=== PATIENT | female | born 1965 | race Caucasian/White ===

== ENCOUNTER → 2017-11-24 13:01 | Outpatient (POV) | payer BC, SELFPAY ==
[2017-11-24 13:11] VITALS: BP 138/85; PULSE 71; RESP 18; O2SAT 98; BMI 21.9
--- NOTE | 2017-11-24 13:26 | HMH.PAINSOAP ---
[facility] Pain Management SOAP Note Subjective:: Patient is a pleasant 51-year-old white female who presents today to discuss her thoracic spine MRI. Patient has pain secondary to myofascial pain syndrome of the thoracic paraspinous. Patient had trigger point injections back in July with no long-term relief she states. 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 Today she states her pain is a 7 out of 10. She states her pain is achy and constant during flareups. She states that she has palpable knots in her right scapular region during flareups. Patient has been taking gabapentin 100 by mouth 3 times a day from her primary care provider she states that it does help some. Patient has tried and failed Lyrica. Patient also takes Flexeril in the evening. Patient would like to discuss options moving forward for more long-term relief. Patient currently going through changes at work which are stressful. She has also been seeing massage therapy for this with some relief. Objective:: Physical Exam General: Alert and oriented x3, no acute distress, pleasant and cooperative, [on room air] Lungs: Resps E/U, Symmetrical chest expansion Musculoskeletal: Flexion and extension of thoracic spine somewhat guarded secondary to pain, deep tendon reflexes normal, strength in upper and lower extremities [5/5], normal gait noted, stream point tenderness over the thoracic paraspinous on the right side. Palpable trigger points around the right scapular area. Neurological: speech clear, methods and procedures analyst equal, no gross sensory deficits MRI shows minimal thoracic spondylosis, no acute findings, no evidence of disc herniation canal stenosis or any other extradural defects. MRI read by Dr. Lazaro Stuart. Assessment:: Myofascial pain syndrome Plan:: We will plan a second round of trigger point injections of the thoracic paraspinous on the right side for this patient. We will coordinate with the massage therapist to have a massage right after injections. Patient also not on an anti-inflammatory. I will call in diclofenac 75 mg 1 p.o. twice daily. She will continue her gabapentin and her Flexeril from her primary care. This note was dictated with voice recognition software and may contain errors and omissions
--- NOTE | 2017-11-24 13:29 | P.CONS_ITS ---
[facility] Pain Management SOAP Note Subjective:: Patient is a pleasant 51-year-old white female who presents today to discuss her thoracic spine MRI. Patient has pain secondary to myofascial pain syndrome of the thoracic paraspinous. Patient had trigger point injections back in July with no long-term relief she states. 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 Today she states her pain is a 7 out of 10. She states her pain is achy and constant during flareups. She states that she has palpable knots in her right scapular region during flareups. Patient has been taking gabapentin 100 by mouth 3 times a day from her primary care provider she states that it does help some. Patient has tried and failed Lyrica. Patient also takes Flexeril in the evening. Patient would like to discuss options moving forward for more long-term relief. Patient currently going through changes at work which are stressful. She has also been seeing massage therapy for this with some relief. Objective:: Physical Exam General: Alert and oriented x3, no acute distress, pleasant and cooperative, [ on room air] Lungs: Resps E/U, Symmetrical chest expansion Musculoskeletal: Flexion and extension of thoracic spine somewhat guarded secondary to pain, deep tendon reflexes normal, strength in upper and lower extremities [5/5], normal gait noted, stream point tenderness over the thoracic paraspinous on the right side. Palpable trigger points around the right scapular area. Neurological: speech clear, centrifugal supervisor equal, no gross sensory deficits MRI shows minimal thoracic spondylosis, no acute findings, no evidence of disc herniation canal stenosis or any other extradural defects. MRI read by Dr. Lazaro Stuart. Assessment:: Myofascial pain syndrome Plan:: We will plan a second round of trigger point injections of the thoracic paraspinous on the right side for this patient. We will coordinate with the massage therapist to have a massage right after injections. Patient also not on an anti-inflammatory. I will call in diclofenac 75 mg 1 p.o. twice daily. She will continue her gabapentin and her Flexeril from her primary care. This note was dictated with voice recognition software and may contain errors and omissions
--- NOTE | 2017-11-24 13:33 | PC.PHONENOTE ---
called in Rx for Diclofenac 75mg BID with two refills to [facility]
== END ==
PROVIDERS: Family Provider Family Medicine; PCP Family Medicine; Visit Provider Clinical Nurse Specialist Family Health
DX: M79.1 Myalgia (principal)
CPT/HCPCS: 99212

== ENCOUNTER → 2017-12-05 13:34 | Day surgery (SDC) | payer BC, SELFPAY ==
[2017-12-05 14:21] VITALS: BP 151/90; PULSE 64; RESP 17; TEMP 36.4; O2SAT 98; BMI 22.8
[2017-12-05 14:40] VITALS: BP 125/86; PULSE 64; RESP 18
[2017-12-05 14:49] VITALS: BP 163/88; PULSE 72; RESP 18; O2SAT 96
--- NOTE | 2017-12-05 15:01 | HMH.PMPROC ---
- Procedure Date: 12/05/17 Time: 15:01 Anesthesiologist:: Titus Del Valle MD Complications:: None Pre-procedure Diagnosis:: Myofascial pain syndrome neck and upper trapezius area Post-procedure Diagnosis:: Same Indications for Procedure:: Patient is a pleasant 51-year-old white female who we are treating for myofascial pain to the neck and thoracic paraspinous area. Most of her pain encompasses trigger points throughout the upper trapezius area, lower trapezius area and thoracic paraspinous muscles. She presents for trigger point injections today to see if this will give her some relief of her pain symptoms. Procedure Details:: Trigger point injections ?8 to bilateral upper and lower trapezius muscles and thoracic paraspinous muscles Informed consent was obtained and the risk and benefits of the procedure was explained to the patient. Patient was taken to the procedure room. The neck and back were prepped using ChloraPrep. Triggerpoints were palpated and marked. Each of these trigger points were injected with bupivacaine 0.25% 3 mL's and Depo-Medrol 10 mg. A total of 8 trigger points was injected using 80 mg Depo-Medrol. The patient tolerated the procedure well with no complications. Plan and Disposition:: We will follow-up with this patient 2 weeks. We will reevaluate her symptoms at that time.
--- NOTE | 2017-12-05 15:07 | P.PCN_ITS ---
- Procedure Date: 12/05/17 Time: 15:01 Anesthesiologist:: Titus Del Valle MD Complications:: None Pre-procedure Diagnosis:: Myofascial pain syndrome neck and upper trapezius area Post-procedure Diagnosis:: Same Indications for Procedure:: Patient is a pleasant 51-year-old white female who we are treating for myofascial pain to the neck and thoracic paraspinous area. Most of her pain encompasses trigger points throughout the upper trapezius area, lower trapezius area and thoracic paraspinous muscles. She presents for trigger point injections today to see if this will give her some relief of her pain symptoms. Procedure Details:: Trigger point injections ?8 to bilateral upper and lower trapezius muscles and thoracic paraspinous muscles Informed consent was obtained and the risk and benefits of the procedure was explained to the patient. Patient was taken to the procedure room. The neck and back were prepped using ChloraPrep. Triggerpoints were palpated and marked. Each of these trigger points were injected with bupivacaine 0.25% 3 mL' s and Depo-Medrol 10 mg. A total of 8 trigger points was injected using 80 mg Depo-Medrol. The patient tolerated the procedure well with no complications. Plan and Disposition:: We will follow-up with this patient 2 weeks. We will reevaluate her symptoms at that time.
== END ==
PROVIDERS: Family Provider Family Medicine; PCP Family Medicine; Visit Provider Anesthesiology
DX: M79.1 Myalgia (principal)
CPT/HCPCS: 20552; J1030

== ENCOUNTER → 2017-12-09 08:56 | Outpatient (POV) | payer BC, SELFPAY ==
[2017-12-09 09:29] VITALS: BP 148/89; PULSE 93; RESP 18; TEMP 37.1; O2SAT 95; BMI 22.8
--- NOTE | 2017-12-09 10:12 | HMH.PAINSOAP ---
[facility] Pain Management SOAP Note Subjective:: Patient is a pleasant 51-year-old white female who we are treating for myofascial pain syndrome of the neck and thoracic paraspinous area. Patient had trigger point injections on Friday. Since then she has complete relief in her right side pain. However, she has increased pain in her left thoracic paraspinous. Patient states she is unable to sit or work. She said that she was planning on going to the urgent treatment center. Patient shows up today to discuss treatment. Patient has not taken the diclofenac we have prescribed for her yet. Patient states that she does use a heating pad and that does help. She rates her pain a 9 out of 10 today. ROS General: no recent weight change, no fever, no sleep disturbances Respiratory: no cough, no shortness of air, no recurring pulmonary infections Cardiovascular/Peripheral Vascular: No chest pain, No palpitations, no edema, no shortness of breath. Gastrointestinal: no incontinence, normal bowel movements reported Genitourinary: no incontinence Musculoskeletal: Trigger point palpated on the left thoracic paraspinous Psychiatric: normal mood/ affect Neurological: denies balance issues Objective:: Physical Exam General: Alert and oriented x3, no acute distress, pleasant and cooperative, [on room air] Lungs: Resps E/U, Symmetrical chest expansion, Eyes: PERRL Musculoskeletal: Extreme point tenderness on left-sided thoracic paraspinous. Trigger points palpated on left thoracic paraspinous. deep tendon reflexes normal, strength in upper and lower extremities [5/5], normal gait noted Neurological: speech clear, reinforcement maker equal, no gross sensory deficits Assessment:: Myofascial pain syndrome Plan:: I will call patient prednisone 20 mg 1 p.o. twice daily for 5 days. I also will call in tramadol 50 mg 1 p.o. 3 times daily for a week. She is to also take the diclofenac that has been prescribed for her previously. Patient on gabapentin and states that she cannot take Lyrica. We will follow-up with this patient in 1 week. Bryce #[id number] reviewed and appropriate. This note was dictated using voice ignition software may contain errors or omissions
--- NOTE | 2017-12-09 10:16 | P.CONS_ITS ---
[facility] Pain Management SOAP Note Subjective:: Patient is a pleasant 51-year-old white female who we are treating for myofascial pain syndrome of the neck and thoracic paraspinous area. Patient had trigger point injections on Friday. Since then she has complete relief in her right side pain. However, she has increased pain in her left thoracic paraspinous. Patient states she is unable to sit or work. She said that she was planning on going to the urgent treatment center. Patient shows up today to discuss treatment. Patient has not taken the diclofenac we have prescribed for her yet. Patient states that she does use a heating pad and that does help. She rates her pain a 9 out of 10 today. ROS General: no recent weight change, no fever, no sleep disturbances Respiratory: no cough, no shortness of air, no recurring pulmonary infections Cardiovascular/Peripheral Vascular: No chest pain, No palpitations, no edema, no shortness of breath. Gastrointestinal: no incontinence, normal bowel movements reported Genitourinary: no incontinence Musculoskeletal: Trigger point palpated on the left thoracic paraspinous Psychiatric: normal mood/ affect Neurological: denies balance issues Objective:: Physical Exam General: Alert and oriented x3, no acute distress, pleasant and cooperative, [ on room air] Lungs: Resps E/U, Symmetrical chest expansion, Eyes: PERRL Musculoskeletal: Extreme point tenderness on left-sided thoracic paraspinous. Trigger points palpated on left thoracic paraspinous. 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 twice daily for 5 days. I also will call in tramadol 50 mg 1 p.o. 3 times daily for a week. She is to also take the diclofenac that has been prescribed for her previously. Patient on gabapentin and states that she cannot take Lyrica. We will follow-up with this patient in 1 week. Bryce #[id number] reviewed and appropriate. This note was dictated using voice ignition software may contain errors or omissions
--- NOTE | 2017-12-10 08:35 | PC.PHONENOTE ---
12/09/17-called in Rx for Prednisone 20mg BID x5 days, Tramadol 50mg TID x 7 days and Diclofenac 75mg BID with 2 refills to pt pharmacy
== END ==
PROVIDERS: Family Provider Family Medicine; PCP Family Medicine; Visit Provider Clinical Nurse Specialist Family Health
DX: M79.1 Myalgia (principal)
CPT/HCPCS: 99212

== ENCOUNTER → 2017-12-16 09:35 | Outpatient (POV) | payer BC, SELFPAY ==
[2017-12-16 09:44] VITALS: BP 138/87; PULSE 101; RESP 20; TEMP 36.5; O2SAT 96; BMI 21.9
--- NOTE | 2017-12-16 09:53 | HMH.PAINSOAP ---
[facility] Pain Management SOAP Note Subjective:: This patient is a pleasant 52-year-old white female who presents today to discuss her recent flareup in pain. Patient is doing much better since her last visit she rates her pain a 3 out of 10 today. She does state that the pain has now moved back into her right side. Patient has pain secondary to myofascial pain syndrome of the thoracic paraspinous. Patient finished her steroids and found that this alleviated her pain greatly. Patient is now taking her diclofenac as prescribed. Patient is currently on gabapentin. Patient did have a trial dose of tramadol she states that this helped her pain significantly. Patient denies any side effects of the medication. ROS General: no recent weight change, no fever, no sleep disturbances Respiratory: no cough, no shortness of air, no recurring pulmonary infections Cardiovascular/Peripheral Vascular: No chest pain, No palpitations, no edema, no shortness of breath. Gastrointestinal: no incontinence, normal bowel movements reported Genitourinary: no incontinence Musculoskeletal: myfascial pain syndrome Psychiatric: normal mood/ affect, Neurological: [denies weakness in extremities], [denies balance issues] Objective:: Physical Exam General: Alert and oriented x3, no acute distress, pleasant and cooperative, [on room air] Lungs: Resps E/U, Symmetrical chest expansion, Eyes: PERRL Musculoskeletal: Flexion and extension of thoracic spine somewhat guarded secondary to pain, deep tendon reflexes normal, strength in upper and lower extremities [5/5], normal gait noted, palpable trigger points on bilateral thoracic paraspinous Neurological: speech clear, 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 twice daily and give her 1 month worth she is continuing to massage therapy. Patient is back at work. Patient's KAREN #[id number] reviewed and appropriate. I will see this patient back in a month and reevaluate her at this time. I believe that injections at this time would not be beneficial. However I do believe they would be beneficial in the future. This note was dictated using voice recognition software may contain errors or omissions
--- NOTE | 2017-12-16 09:56 | P.CONS_ITS ---
[facility] Pain Management SOAP Note Subjective:: This patient is a pleasant 52-year-old white female who presents today to discuss her recent flareup in pain. Patient is doing much better since her last visit she rates her pain a 3 out of 10 today. She does state that the pain has now moved back into her right side. Patient has pain secondary to myofascial pain syndrome of the thoracic paraspinous. Patient finished her steroids and found that this alleviated her pain greatly. Patient is now taking her diclofenac as prescribed. Patient is currently on gabapentin. Patient did have a trial dose of tramadol she states that this helped her pain significantly. Patient denies any side effects of the medication. ROS General: no recent weight change, no fever, no sleep disturbances Respiratory: no cough, no shortness of air, no recurring pulmonary infections Cardiovascular/Peripheral Vascular: No chest pain, No palpitations, no edema, no shortness of breath. Gastrointestinal: no incontinence, normal bowel movements reported Genitourinary: no incontinence Musculoskeletal: myfascial pain syndrome Psychiatric: normal mood/ affect, Neurological: [denies weakness in extremities], [denies balance issues] Objective:: Physical Exam General: Alert and oriented x3, no acute distress, pleasant and cooperative, [ on room air] Lungs: Resps E/U, Symmetrical chest expansion, Eyes: PERRL Musculoskeletal: Flexion and extension of thoracic spine somewhat guarded secondary to pain, deep tendon reflexes normal, strength in upper and lower extremities [5/5], normal gait noted, palpable trigger points on bilateral thoracic paraspinous Neurological: speech clear, cooker mechanic equal, no gross sensory deficits Assessment:: Myofascial pain syndrome Plan:: I will call this patient in tramadol 50 mg 1 p.o. twice daily and give her 1 month worth she is continuing to massage therapy. Patient is back at work. Patient's KAREN #[id number] reviewed and appropriate. I will see this patient back in a month and reevaluate her at this time. I believe that injections at this time would not be beneficial. However I do believe they would be beneficial in the future. This note was dictated using voice recognition software may contain errors or omissions
--- NOTE | 2017-12-16 10:27 | PC.PHONENOTE ---
called in Rx for Tramadol BID with no refills to [facility] in [place]
== END ==
PROVIDERS: Family Provider Family Medicine; PCP Family Medicine; Visit Provider Clinical Nurse Specialist Family Health
DX: M79.1 Myalgia (principal)
CPT/HCPCS: 99212

== ENCOUNTER → 2018-01-26 09:31 | Outpatient (POV) | payer BC, SELFPAY ==
[2018-01-26 09:38] VITALS: BP 143/82; PULSE 77; RESP 20; O2SAT 98; BMI 22.4
--- NOTE | 2018-01-26 09:57 | HMH.PAINSOAP ---
[facility] Pain Management SOAP Note Subjective:: Patient is a pleasant 52-year-old white female who presents today for follow-up. Patient is doing well on her current regimen of Zanaflex, tramadol. She is still working time. Patient states she is a little tired today due to watching her grandkids this weekend. Patient rates her pain 5 out of 10 today. Patient does state that it makes it worse with the changing of the weather. Patient is being treated for pain secondary to myofascial pain syndrome of the thoracic paraspinous. He denies any side effects to the medication. Patient is interested in potentially having a medication that she can take to help alleviate some of her nerve related pain symptoms. Patient and I discussed Cymbalta. We will start her at 30 mg daily. Patient denies any allergies. ROS General: no recent weight change, no fever, no sleep disturbances Respiratory: no cough, no shortness of air, no recurring pulmonary infections Cardiovascular/Peripheral Vascular: No chest pain, No palpitations, no edema, no shortness of breath. Gastrointestinal: no incontinence, normal bowel movements reported Genitourinary: no incontinence Musculoskeletal: Myofascial pain Psychiatric: normal mood/ affect, Neurological: [denies weakness in extremities], [denies balance issues] Objective:: Physical Exam General: Alert and oriented x3, no acute distress, pleasant and cooperative, [on room air] Lungs: Resps E/U, Symmetrical chest expansion, Eyes: PERRL Musculoskeletal: Flexion and extension of thoracic spine somewhat guarded secondary to pain, deep tendon reflexes normal, strength in upper and lower extremities [5/5], normal gait noted, palpable trigger points thoracic paraspinous bilaterally Neurological: speech clear, public affairs officer equal, no gross sensory deficits Assessment:: Myofascial pain syndrome Plan:: We will refill the patient's tramadol 50 mg 1 p.o. twice daily. Patient is also taking Zanaflex 4 mg 1 tab p.o. 3 times daily as needed. Patient states she mostly takes this at nighttime. Patient denies any side effects from the medications. We will also start her on Cymbalta 30 mg 1 p.o. daily. Patient is to call if she has any side effects to this medication. I will follow-up with this patient in months. KAREN #[id number] reviewed and appropriate. Patient is no longer taking gabapentin. This note was dictated using voice recognition software and may contain errors or omissions
--- NOTE | 2018-01-26 10:01 | P.CONS_ITS ---
[facility] Pain Management SOAP Note Subjective:: Patient is a pleasant 52-year-old white female who presents today for follow- up. Patient is doing well on her current regimen of Zanaflex, tramadol. She is still working time. Patient states she is a little tired today due to watching her grandkids this weekend. Patient rates her pain 5 out of 10 today. Patient does state that it makes it worse with the changing of the weather. Patient is being treated for pain secondary to myofascial pain syndrome of the thoracic paraspinous. He denies any side effects to the medication. Patient is interested in potentially having a medication that she can take to help alleviate some of her nerve related pain symptoms. Patient and I discussed Cymbalta. We will start her at 30 mg daily. Patient denies any allergies. ROS General: no recent weight change, no fever, no sleep disturbances Respiratory: no cough, no shortness of air, no recurring pulmonary infections Cardiovascular/Peripheral Vascular: No chest pain, No palpitations, no edema, no shortness of breath. Gastrointestinal: no incontinence, normal bowel movements reported Genitourinary: no incontinence Musculoskeletal: Myofascial pain Psychiatric: normal mood/ affect, Neurological: [denies weakness in extremities], [denies balance issues] Objective:: Physical Exam General: Alert and oriented x3, no acute distress, pleasant and cooperative, [ on room air] Lungs: Resps E/U, Symmetrical chest expansion, Eyes: PERRL Musculoskeletal: Flexion and extension of thoracic spine somewhat guarded secondary to pain, deep tendon reflexes normal, strength in upper and lower extremities [5/5], normal gait noted, palpable trigger points thoracic paraspinous bilaterally Neurological: speech clear, go cart mechanic equal, no gross sensory deficits Assessment:: Myofascial pain syndrome Plan:: We will refill the patient's tramadol 50 mg 1 p.o. twice daily. Patient is also taking Zanaflex 4 mg 1 tab p.o. 3 times daily as needed. Patient states she mostly takes this at nighttime. Patient denies any side effects from the medications. We will also start her on Cymbalta 30 mg 1 p.o. daily. Patient is to call if she has any side effects to this medication. I will follow-up with this patient in months. KAREN #[id number] reviewed and appropriate. Patient is no longer taking gabapentin. This note was dictated using voice recognition software and may contain errors or omissions
--- NOTE | 2018-01-27 12:52 | PC.PHONENOTE ---
01/26/18--called in Rx for Cymbalta 30mg daily with 2 refills to pt's pharmacy
== END ==
PROVIDERS: Family Provider Family Medicine; PCP Family Medicine; Visit Provider Clinical Nurse Specialist Family Health
DX: M79.1 Myalgia (principal)
CPT/HCPCS: 99212

== ENCOUNTER → 2018-04-27 09:00 | Outpatient (POV) | payer BC, SELFPAY ==
[2018-04-27 09:02] VITALS: BP 125/88; PULSE 85; RESP 18; O2SAT 98; BMI 21.9
--- NOTE | 2018-04-27 09:16 | P.CONS_ITS ---
[facility] Pain Management SOAP Note Subjective:: Patient is a pleasant 52-year-old white female who presents today for follow- up. Patient is doing well however she has been noticing that she is having to take her medication more. Patient is being treated for myofascial pain syndrome. Patient has had trigger point injections with good relief in the past and states that she believes that the pain is beginning to return. Patient would like additional trigger point injections. Patient states that after injection she gets up to 80% relief of her symptoms. Patient rates her pain a 6 out of 10 today. Mostly in her right trapezius. She was started on Cymbalta at her last visit and is doing quite well with this denies any side effects. We will increase that from 30 mg to 60 mg today. Patient is also on tramadol 50 mg 1 p.o. twice daily. Patient's KAREN #[id number] reviewed and appropriate. ROS General: no recent weight change, no fever, no sleep disturbances Respiratory: no cough, no shortness of air, no recurring pulmonary infections Cardiovascular/Peripheral Vascular: No chest pain, No palpitations, no edema, no shortness of breath. Gastrointestinal: no incontinence, normal bowel movements reported Genitourinary: no incontinence Musculoskeletal: Myofascial pain Psychiatric: normal mood/ affect Neurological: [denies weakness in extremities], [denies balance issues] Objective:: Physical Exam General: Alert and oriented x3, no acute distress, pleasant and cooperative, [ on room air] Lungs: Resps E/U, Symmetrical chest expansion, Eyes: PERRL Musculoskeletal: Flexion and extension of cervical spine somewhat guarded secondary to pain, deep tendon reflexes normal, strength in upper and lower extremities [5/5], normal gait, palpable trigger points right trapezius Neurological: speech clear, 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 daily we will also refill her tramadol 50 mg 1 p.o. 3 times daily. Patient's KAREN reviewed. Patient denies side effects of this medication and is doing quite well on it. We will schedule right trapezius trigger point injections for the patient. I will follow-up with her after this injection. This note was dictated using voice recognition software and may contain errors or omissions
== END ==
PROVIDERS: Family Provider Family Medicine; PCP Family Medicine; Visit Provider Clinical Nurse Specialist Family Health
DX: M79.1 Myalgia (principal)
CPT/HCPCS: 99212

== ENCOUNTER → 2018-05-26 09:11 | Outpatient (POV) | payer BC, SELFPAY ==
[2018-05-26 09:36] VITALS: BP 146/85; PULSE 62; RESP 18; O2SAT 98; BMI 22.8
--- NOTE | 2018-05-26 10:09 | P.CONS_ITS ---
[facility] Pain Management SOAP Note Subjective:: She is a pleasant 52-year-old white female who presents today for follow-up after trigger injections. Patient has had relief with these in the past however she states she did not get any relief from her pain in regards to this today. Most of her pain is in her right shoulder and down her shoulder blade. Patient does not have any recent MRIs of her cervical spine. I believe it would be beneficial to get this. Patient's currently being managed with tramadol 50 mg 1 p.o. 3 times daily. She is also utilizing massage therapy. Patient states her pain has been getting worse.. She rates her pain a 6 out of 10 today. ROS General: no recent weight change, no fever, no sleep disturbances Respiratory: no cough, no shortness of air, no recurring pulmonary infections Cardiovascular/Peripheral Vascular: No chest pain, No palpitations, no edema, no shortness of breath. Gastrointestinal: no incontinence, normal bowel movements reported Genitourinary: no incontinence Musculoskeletal: Myofascial pain, and shoulder pain, neck pain Psychiatric: normal mood/ affect Neurological: [denies weakness in extremities], [denies balance issues] Objective:: Physical Exam General: Alert and oriented x3, no acute distress, pleasant and cooperative, [ on room air] Lungs: Resps E/U, Symmetrical chest expansion, Eyes: PERRL Musculoskeletal: Flexion and extension of cervical spine somewhat guarded secondary to pain, deep tendon reflexes normal, strength in upper and lower extremities [5/5], normal gait noted, palpable trigger points along the right trapezius 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 We will also try some compounding cream to help with her myofascial pain. I will follow-up with the patient after her MRI and discussed the plan of care with her. This note was dictated using voice recognition software and may contain errors or omissions
--- NOTE | 2018-06-08 13:57 | PC.NURSE ---
TRAMADOL 50MG TID WITH 2 REFILLS CALLED INTO [facility]
== END ==
PROVIDERS: Family Provider Family Medicine; PCP Family Medicine; Visit Provider Clinical Nurse Specialist Family Health
DX: M79.1 Myalgia (principal)
CPT/HCPCS: 99213

== ENCOUNTER → 2018-06-11 10:28 | Outpatient (CLI) | payer BC, SELFPAY ==
--- NOTE | 2018-06-11 10:30 | MR_ITS ---
MR cervical spine wo con, MR 3-d myelogram/MRCP HISTORY: Neck pain, worse on the right. States having bilateral neck spasms but worse on the rt side. Spasms will go from the neck down to the scapulas. . ITS.REASON: NECK PAIN ORDERING PHYSICIAN: Titus Del Valle MD PATIENT AGE: 52 years Comparison: None TECHNIQUE: Standard multiplanar multiecho sequences are performed without contrast. 3-D MIP and myelographic images are also rendered and reviewed FINDINGS: Normal alignment. Unremarkable cranial cervical junction. No fracture or dislocation. The disc spaces are well-preserved. No evidence of significant disc bulge or herniated disc or canal stenosis. No significant degenerative change. The spinal cord has an unremarkable appearance. IMPRESSION: Negative MRI of the cervical spine
== END ==
PROVIDERS: Family Provider Family Medicine; PCP Family Medicine; Visit Provider Anesthesiology
DX: M54.2 Cervicalgia (principal)
CPT/HCPCS: 72141; 76376

== ENCOUNTER → 2018-06-29 12:58 | Outpatient (POV) | payer BC, SELFPAY ==
[2018-06-29 13:11] VITALS: BP 132/77; PULSE 57; RESP 18; O2SAT 100; BMI 21.9
--- NOTE | 2018-06-29 13:43 | HMH.PAINSOAP ---
[facility] Pain Management SOAP Note Subjective:: Patient is a pleasant 52-year-old white female who presents today for follow-up. Patient had MRI of her cervical spine which was negative. Patient still having a lot of neck and trapezius pain. Most of her pain is in her right shoulder and down her shoulder blade. Patient rates her pain a 8 out of 10. Patient has tried a compounding cream which has helped somewhat patient still on tramadol 50 mg 1 p.o. 3 times daily gabapentin 100 mg 1 p.o. 3 times daily. We will refill these for her today. Patient has not tried dry needling. Patient has had trigger points in the past with good relief however her last that did not help her as much as they typically do. ROS General: no recent weight change, no fever, no sleep disturbances Respiratory: no cough, no shortness of air, no recurring pulmonary infections Cardiovascular/Peripheral Vascular: No chest pain, No palpitations, no edema, no shortness of breath. Gastrointestinal: no incontinence, normal bowel movements reported Genitourinary: no incontinence Musculoskeletal: Myofascial pain Psychiatric: normal mood/ affect Neurological: [denies weakness in extremities], [denies balance issues] Objective:: Physical Exam General: Alert and oriented x3, no acute distress, pleasant and cooperative, [on room air] Lungs: Resps E/U, Symmetrical chest expansion, Eyes: PERRL Musculoskeletal: Flexion and extension of cervical spine somewhat guarded secondary to pain, deep tendon reflexes normal, strength in upper and lower extremities [5/5], normal gait noted Neurological: 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 I will follow-up with the patient after this. We will refill her medications. Patient has been instructed to call the office if she has any issues prior to her next appointment. This note was dictated using voice recognition software and may contain errors or omissions
== END ==
PROVIDERS: Family Provider Family Medicine; PCP Family Medicine; Visit Provider Clinical Nurse Specialist Family Health
DX: M79.1 Myalgia (principal); M54.2 Cervicalgia
CPT/HCPCS: 99213

== ENCOUNTER → 2018-08-03 14:35 | Outpatient (POV) | payer BC, SELFPAY ==
[2018-08-03 14:47] VITALS: BP 116/78; PULSE 80; RESP 18; O2SAT 98; BMI 22.8
--- NOTE | 2018-08-03 14:59 | HMH.PAINSOAP ---
[facility] Pain Management SOAP Note Subjective:: Patient is a pleasant 52-year-old white female who presents today for follow-up. Patient had an MRI of her cervical spine which was negative she is been getting dry needling along with physical therapy for her neck and trapezius pain. She states that it is very beneficial she rates her pain a 5 out of 10 today. Patient is also on tramadol and gabapentin. ROS General: no recent weight change, no fever, no sleep disturbances Respiratory: no cough, no shortness of air, no recurring pulmonary infections Cardiovascular/Peripheral Vascular: No chest pain, No palpitations, no edema, no shortness of breath. Gastrointestinal: no incontinence, normal bowel movements reported Genitourinary: no incontinence Musculoskeletal: Myofascial pain Psychiatric: normal mood/ affect Neurological: [denies weakness in extremities], [denies balance issues] Objective:: Physical Exam General: Alert and oriented x3, no acute distress, pleasant and cooperative, [on room air] Lungs: Resps E/U, Symmetrical chest expansion, Eyes: PERRL Musculoskeletal: Flexion and extension of cervical spine somewhat guarded secondary to pain, deep tendon reflexes normal, strength in upper and lower extremities [5/5], normal gait noted Neurological: 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 Patient is instructed to call the office if she has any issues prior to her next appointment. This note was dictated using voice recognition software and may contain errors or omissions
--- NOTE | 2018-08-03 15:03 | P.CONS_ITS ---
[facility] Pain Management SOAP Note Subjective:: Patient is a pleasant 52-year-old white female who presents today for follow-up. Patient had an MRI of her cervical spine which was negative she is been getting dry needling along with physical therapy for her neck and trapezius pain. She states that it is very beneficial she rates her pain a 5 out of 10 today. Patient is also on tramadol and gabapentin. ROS General: no recent weight change, no fever, no sleep disturbances Respiratory: no cough, no shortness of air, no recurring pulmonary infections Cardiovascular/Peripheral Vascular: No chest pain, No palpitations, no edema, no shortness of breath. Gastrointestinal: no incontinence, normal bowel movements reported Genitourinary: no incontinence Musculoskeletal: Myofascial pain Psychiatric: normal mood/ affect Neurological: [denies weakness in extremities], [denies balance issues] Objective:: Physical Exam General: Alert and oriented x3, no acute distress, pleasant and cooperative, [on room air] Lungs: Resps E/U, Symmetrical chest expansion, Eyes: PERRL Musculoskeletal: Flexion and extension of cervical spine somewhat guarded secondary to pain, deep tendon reflexes normal, strength in upper and lower extremities [5/5], normal gait noted 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 Patient is instructed to call the office if she has any issues prior to her next appointment. This note was dictated using voice recognition software and may contain errors or omissions
== END ==
PROVIDERS: Family Provider Family Medicine; PCP Family Medicine; Visit Provider Clinical Nurse Specialist Family Health
DX: M79.18 Myalgia, other site (principal); M54.2 Cervicalgia
CPT/HCPCS: 99213

== ENCOUNTER 2018-11-05 16:00 | Outpatient (RCR) | payer BC, SELFPAY ==
--- NOTE | 2018-08-28 16:51 | HMH.RHREAS ---
Rehab Reassessment Rehab OP Re-assessment Start: 08/28/18 16:05 Freq: Status: Active Protocol: Document 08/28/18 16:06 JANICE (Rec: 08/28/18 16:51 JANICE [id number]) Electronically Signed By Willian Soriano, PT 08/28/18 16:06 Rehab Re-assessment Subjective Subjective Pt reports 40% improvement since start of current plan of care. Doing the physical therpay and massage therapy at the same time is giving me the most relief I've had in a long time. Objective Objective Notes Cervical AROM WNL MMT: WNL Pain: currently 4/10, at worst over past week 7/10, at best 2/10 Neuro: WNL TTP: R interscapular mm Assessment Progress Assessment Slower Than Expected Assessment Notes Progress has been hinderd by time constraints with prior oblications. Rx has consisted of soft tissue stretches and postural corrective exercises. Pt reports compliance with HEP. Manual dry needling to address trigger points and pain referral. Thoracic spine HVLAT with cavitations. Modalities for anti- inflammatory and pain reduction purposes. Pt would benefit from contiuing with skilled PT services in order to progress wellness and decrease functional limitation . Patient goals met STG's Goals Not Met LTG's Revised Goals NA Plan Plan Continue with current POC. Frequency of Therapy 2x/week Duration of therapy 3 weeks Time and Billing Re-Eval Time 15 Re-Eval Billing Units 1 PHYSICIAN CERTIFICATION: I certify the specified therapy services for Carolee Hou are required, authorized, and reviewed every 30 days.
== END 2018-11-05 16:05 | disposition home or self-care (01) ==
LOC: PT 16:00
PROVIDERS: Family Provider Family Medicine; PCP Family Medicine; Visit Provider Clinical Nurse Specialist Family Health
DX: M54.2 Cervicalgia (principal); M25.511 Pain in right shoulder; M25.512 Pain in left shoulder
CPT/HCPCS: 97010; 97014; 97035; 97110; 97140; 97163; 97164; G0283

== ENCOUNTER → 2021-06-08 07:59 | Outpatient (CLI) | payer BC, SELFPAY ==
--- NOTE | 2021-06-08 08:05 | CT_ITS ---
PROCEDURE: CT LUNG SCREENING CLINICAL INDICATION: H/O NICOTINE DEPENDENCE COMPARISON: No exams were available for comparison TECHNIQUE: The exam was performed on a GE Light Speed [address] scanner using 2.90 mGy CTDI. A low dose helical CT CHEST was performed on a multi-detector scanner. All CT scans at the facility use one or more dose reduction, viz: automated exposure control, ma/kV adjustment per patient size (including targeted exams where dose is matched to indication, i.e. head), or iterative reconstruction technique. The LDCT was performed in a facility that meets the criteria for the screening program. Data regarding this exam was submitted to ACR which is an approved registry. The order for this exam indicates that it came as a result of a lung cancer screening counseling shard decision-making visit that included all the elements required of such a visit including smoking cessation. The radiologist interpreting this exam meets the CMS criteria for the LDCT lung cancer screening program. The exam is reported using the Lung-RADS classification scale and reported to the ACR registry. NOTE: This study was performed for the specific purposes of lung cancer screening and is not an alternative to diagnostic chest CT. RADIATION DOSE: CTDI vol(CT dose Index-volume) = 2.90mG DLP (Dose Length Product) = 84.38 mGcm FINDINGS: COPD with evidence of old granulomatous disease. Low lung volumes with atelectatic changes in the lung bases. 3 mm nodular opacity right lung base 4/40. No suspicious nodules identified. OTHER FINDINGS: No other pertinent findings evident. IMPRESSION: Lung-RADS Category 2 Benign Appearance or Behavior Follow-up: Continue annual screening with LDCT in 12 months Dictated by: Lazaro Stuart MD 06/11/2021 10:50 Lazaro Stuart MD in [place] 06/11/2021 10:50
== END ==
PROVIDERS: PCP Family Medicine; Visit Provider Family Medicine
DX: Z87.891 Personal history of nicotine dependence (principal)
CPT/HCPCS: 71271

== ENCOUNTER 2022-02-19 20:33 | Emergency (ER) | payer BC, SELFPAY ==
[2022-02-19 20:51] VITALS: BP 154/84; PULSE 91; RESP 19; TEMP 36.7; O2SAT 100; BMI 25.2
[2022-02-19 21:05] LABS: Apearance,Urine Clear (Clear); Bilirubin,Urine Negative (Negative); Blood, Urine Negative (Negative); Color,Urine Yellow (Yellow); Glucose,Urine (UA) Negative (Negative); Ketones,Urine Negative (Negative); Protein,Urine Negative (Negative); Specific Gravity, Urine 1.025 (1.005-1.030); UTC Leukocyte Esterase,Urine 1+ (Negative); UTC Nitrate,Urine Negative (Negative); Urobilinogen,Urine 0.2 EU/dl (0.2)
--- NOTE | 2022-02-19 21:07 | XR_ITS ---
PROCEDURE INFORMATION: Exam: XR Right Ribs with PA Chest Exam date and time: 02/19/2022 9:02 PM Age: 56 years old Clinical indication: Chest wall pain; Patient HX: Right rib pain that radiates from flank to posterior. Nki, started hurting at work today TECHNIQUE: Imaging protocol: XR Right ribs with PA chest. Views: 3 views COMPARISON: CT LUNG SCREENING 06/08/2021 8:09 AM FINDINGS: Lungs: Unremarkable. No consolidation. Pleural spaces: Unremarkable. No pleural effusion. No pneumothorax. Heart/Mediastinum: Unremarkable. No cardiomegaly. Bones/joints: Unremarkable. IMPRESSION: No acute findings.
--- NOTE | 2022-02-19 21:46 | HMH.EDUTC ---
[facility] [place] Clinical Impression: Back pain Qualifiers: Back pain location: thoracic back pain Chronicity: acute Back pain laterality: right Qualified Code(s): M54.6 - Pain in thoracic spine Disposition: Still a Patient Condition on Discharge: Good Referrals: Andrade Issa [Primary Care Provider] - Medical Decision Making - Medical Records Medical records reviewed: No: I reviewed the patient's medical records. - Bryce Inquiry Pt receiving controlled substance: No Vital Signs: 02/19/22 20:51 Temperature 98.0 F Temperature Source Oral Pulse Rate [Radial] 91 H Respiratory Rate 19 Blood Pressure [Right Arm] 154/84 H Blood Pressure Mean [Right Arm] 107 02 Sat by Pulse Oximetry 100 - Lab Data Lab results reviewed: Yes: I reviewed the patient's lab results. Lab Results 02/19/22 21:04: Urine Color Yellow, Urine Appearance Clear, Urine pH 6.0, Ur Specific Boyd 1.025, Urine Protein Negative, Urine Glucose (UA) Negative, Urine Ketones Negative, Urine Blood Negative, Urine Nitrate Negative, Urine Bilirubin Negative, Urine Urobilinogen 0.2, Ur Leukocyte Esterase 1+ A Orders (Tests/Meds): ORDERS Category Date Time Status CBC w/Auto Diff [Complete Blood Count Auto Diff] Stat Lab 02/19/22 21:46 Ordered CMP [Comprehensive Metabolic Panel] Stat Lab 02/19/22 21:46 Ordered Urine Culture Stat Micro 02/19/22 21:46 Ordered Medical Decision Narrative: She was transferred to the ER due to the severity of her pain. She is very uncomfortable and cannot sit still because she is hurting so bad in this office. [facility] H[place] - General Stated complaint: pain R Back side Time Seen by Provider: 02/19/22 21:25 Mode of Arrival: Ambulatory Source of Information: Patient Limitations: No Limitations Description of Symptoms (Recalled from Triage Doc. by RN): pt hurting in her right side, she thinks it may be kidney related although she does not have history of kidney stones HEENT Symptoms (Recalled from RN notes): No Resp Symptoms (Recalled from RN notes): No Skin Symptoms (Recalled from RN notes): No MS Symptoms (Recalled from RN notes): No Functional Status (Recalled from RN notes): wnl - History of Present Illness Provider Complaint: She states that since earlier today she has had right sided middle to lower back pain that she rates as a 9/10. She denies any injury or any preceding event. She states that she doesn't feel like she is peeing as much as she normally does also. She denies any dysuria. She denies any personal history of kidney stones. - Related Data Home Medications Medication Instructions Recorded Confirmed Diclofenac Sodium [Diclofenac 75mg 75 mg PO BID 05/05/18 12/17/18 Tab] Losartan Potassium 50 mg PO DAILY 05/05/18 12/17/18 Miscellaneous [Unknown Home 0 mg PO DAILY 05/05/18 12/17/18 Medication] Tizanidine HCl [Zanaflex 4mg 4 mg PO BIDP PRN 05/05/18 12/17/18 tablet] Tramadol HCl [Ultram] 50 mg PO TIDP PRN 05/05/18 12/17/18 gabapentin 100 mg capsule PO 90 Days #270 cap 12/17/18 12/17/18 rosuvastatin 10 mg tablet PO 90 Days #90 tab 12/17/18 12/17/18 Previous Rx's Medication Instructions Recorded Cyclobenzaprine HCl [Flexeril 10mg 10 mg PO Q8HP PRN #30 tab 10/26/18 tablet] Ibuprofen [Ibuprofen 600mg 600 mg PO Q6HP PRN #30 tab 05/12/19 Tablet] Methocarbamol [Robaxin 500mg Tab] 500 mg PO BIDP PRN #30 tab 05/12/19 Benzonatate [Tessalon Perle 100mg 100 mg PO BID 7 Days #14 cap 05/29/19 Cap*] predniSONE [Prednisone 20mg 20 mg PO BID #10 tab 05/29/19 Tab] Amoxicillin/Potassium Clav 1 tab PO Q12H 10 Days #20 tab 07/09/19 [Augmentin 875-125 Tablet] Methocarbamol [Robaxin 500mg Tab] 500 mg PO BIDP PRN #30 tab 07/09/19 methylPREDNISolone [Medrol] 4 mg PO DIRECTED 6 Days #21 07/09/19 tab.[email or web address] Allergies Allergy/AdvReac Type Severity Reaction Status Date / Time No Known Allergies Allergy Verified 02/19/22 20:54 - Worker's Comp Is this
[2022-02-19 22:06] VITALS: BP 133/80; PULSE 76; RESP 18; TEMP 36.8; O2SAT 97; BMI 25.0
[2022-02-19 22:21] LABS: Basophils # 0.2 K/mm3 (0-0.2); Basophils % 1.8 % (0.1-2.0); Eosinophils # 0.1 K/mm3 (0.0-0.4); Eosinophils % 1.5 % (0.1-12.0); Hemoglobin 12.9 g/dL (12.2-16.2); Lymphocytes # 2.7 K/mm3 (0.7-4.5); Lymphocytes % 31.9 % (10-50); Mean Corpuscular HGB Conc 32.3 g/dL (31.8-35.4); Mean Corpuscular Hemoglobin 32.6 pg (27.0-31.2); Mean Platelet Volume 8.1 fl (7.4-10.4); Monocytes # 0.5 K/mm3 (0.1-1.0); Monocytes % 5.4 % (1.7-9.3); Neutrophils % 59.4 % (37.0-80.0); Platelet Count 259 K/mm3 (142-424); Red Blood Count 3.97 M/mm3 (4.20-5.40); White Blood Count 8.5 K/mm3 (4.8-10.8)
[2022-02-19 22:27] LABS: Chloride 105 mmol/L (98-107); Potassium 3.9 mmoL/L (3.5-5.1); Sodium 139 mmol/L (136-145)
[2022-02-19 22:29] LABS: Alanine Aminotransferase 28 U/L (12-78); Aspartate Amino Transferase 29 U/L (14-36); Blood Urea Nitrogen 21 mg/dl (7-17); Creatinine Clearance Estimated 87 mL/min (50-200); Estimated Glomerular Filt Rate 74 ml/min (>60); GFR (African American) 89 ML/MIN (>60)
[2022-02-19 22:30] LABS: Albumin/Globulin Ratio 1.4 (1.1-1.8); Alkaline Phosphatase 111 U/L (38-126); Anion Gap 7.9 mEq/L (5-15); Bilirubin,Total 0.4 mg/dl (0.2-1.3); Calcium 8.9 mg/dl (8.4-10.2); Carbon Dioxide 30 mmol/L (22.0-30.0); Globulin 2.9 g/dL (1.3-3.2); Glucose 108 mg/dl (74-100); Total Protein,Serum 6.9 g/dl (6.3-8.2)
--- NOTE | 2022-02-19 22:42 | CT_ITS ---
PROCEDURE INFORMATION: Exam: CT Abdomen And Pelvis Without Contrast Exam date and time: 02/19/2022 10:46 PM Age: 56 years old Clinical indication: Abdominal pain; Flank; Right; Additional info: R flank pain TECHNIQUE: Imaging protocol: Computed tomography of the abdomen and pelvis without contrast. Radiation optimization: All CT scans at this facility use at least one of these dose optimization techniques: automated exposure control; mA and/or kV adjustment per patient size (includes targeted exams where dose is matched to clinical indication); or iterative reconstruction. COMPARISON: CT LUNG SCREENING 06/08/2021 8:09 AM FINDINGS: Liver: Normal. No mass. Gallbladder and bile ducts: Normal. No calcified stones. No ductal dilation. Pancreas: Normal. No ductal dilation. Spleen: Calcifications in the spleen. Adrenal glands: Normal. No mass. Kidneys and ureters: Mild right hydronephrosis and ureteral dilatation but no stones in the ureter or in the bladder and these findings likely indicate recent passage of stone. Stomach and bowel: Unremarkable. No obstruction. No mucosal thickening. Appendix: Appendix not seen but no secondary signs of appendicitis. Intraperitoneal space: Unremarkable. No free air. No significant fluid collection. Vasculature: Unremarkable. No abdominal aortic aneurysm. Lymph nodes: Unremarkable. No enlarged lymph nodes. Urinary bladder: Unremarkable as visualized. Reproductive: Hysterectomy. Bones/joints: Unremarkable. No acute fracture. Soft tissues: Unremarkable. IMPRESSION: Mild right hydronephrosis and ureteral dilatation but no stones in the ureter or in the bladder and these findings likely indicate recent passage of stone.
[2022-02-19 23:03] LABS: Microscopic, Urine URINE MICROSCOPIC (MICROSCOPIC)
[2022-02-19 23:09] LABS: Appearance,Urine CLEAR (Clear); Bilirubin,Urine Negative (Negative); Blood, Urine Negative (Negative); Color,Urine YELLOW (Yellow); Glucose,Urine (UA) Negative (Negative); Ketones,Urine Negative (Negative); Leukocyte Esterase,Urine 2+ (Negative); Nitrate,Urine Negative (Negative); Protein,Urine Negative (Negative); Urobilinogen,Urine 0.2 EU/dl (0.2)
[2022-02-19 23:11] LABS: Erythrocyte Sedimentation Rate 60 mm/hr (0-30)
[2022-02-19 23:17] LABS: Procalcitonin 0.082 ng/mL (0.0-2.0)
[2022-02-19 23:25] LABS: Squamous Epithelial Cell,Urine Occasional #/hpf (0-5)
[2022-02-19 23:38] VITALS: BP 143/78; PULSE 88; RESP 17; TEMP 37.2; O2SAT 96
== END 2022-02-19 23:48 | disposition home or self-care (01) ==
LOC: UTC 20:40 → ER 21:49
PROVIDERS: Nurse Practitioner Family; Emergency Provider Emergency Medicine; PCP Family Medicine
DX: M54.50 Low back pain, unspecified (principal); M54.6 Pain in thoracic spine; I10 Essential (primary) hypertension; E78.5 Hyperlipidemia, unspecified; F17.210 Nicotine dependence, cigarettes, uncomplicated; Z79.1 Long term (current) use of non-steroidal anti-inflammatories (NSAID); Z79.52 Long term (current) use of systemic steroids; Z79.899 Other long term (current) drug therapy
CPT/HCPCS: 71101; 74176; 80053; 81001; 81003; 84145; 85025; 85651; 86140; 87086; 96374; 96375; 99285; J2405

== ENCOUNTER → 2022-06-14 07:58 | Outpatient (CLI) | payer BC, SELFPAY ==
--- NOTE | 2022-06-14 08:03 | CT_ITS ---
FINAL REPORT TECHNIQUE: Axial images were obtained from the lung apex to the mid abdomen by computed tomography. This study was performed with techniques to keep radiation doses as low as reasonably achievable (ALARA). Individualized dose reduction techniques using automated exposure control or adjustment of mA and/or kV according to the patient's size were employed. CLINICAL HISTORY: H/O NICOTINE DEPENDENCE former smoker, quit 5 years ago. smoked 1 ppd x 30 years family hx COMPARISON: 06/08/2021 FINDINGS: CHEST CT LOW DOSE CTDI vol (mGy): 2.90 DLP (mGy-cm): 89.34 There is no axillary adenopathy. There are multiple borderline sized mediastinal nodes. The heart is normal in size. There is no pericardial or pleural effusion. Lung window images demonstrate no suspicious infiltrate or nodule. There is a calcified granuloma in the right upper lobe. Note is made of mild scarring Limited images of the upper abdomen are unremarkable. IMPRESSION: Lung RADS category 1. Recommend 12 month follow-up low-dose chest CT. Reviewed, Interpreted and Dictated by Dc Marquis III, MD Transcribed by Laila Vidal Authenticated and [facility]
== END ==
PROVIDERS: PCP Family Medicine; Visit Provider Internal Medicine
DX: Z87.891 Personal history of nicotine dependence (principal); Z12.2 Encounter for screening for malignant neoplasm of respiratory organs
CPT/HCPCS: 71271

== ENCOUNTER 2022-06-23 18:04 | Emergency (ER) | payer BC, SELFPAY ==
--- NOTE | 2022-06-23 18:21 | XR_ITS ---
PROCEDURE INFORMATION: Exam: XR Left Ankle Exam date and time: 06/23/2022 6:31 PM Age: 56 years old Clinical indication: Injury or trauma; Fall; Sprain or strain; Ankle; Left TECHNIQUE: Imaging protocol: Radiologic exam of the Left ankle. Views: 3 or more views. COMPARISON: No relevant prior studies available. FINDINGS: Bones/joints: No acute fracture or dislocation. Normal bone mineralization. Ankle mortise is intact. Soft tissues: Normal. IMPRESSION: No acute findings.
--- NOTE | 2022-06-23 18:21 | XR_ITS ---
PROCEDURE INFORMATION: Exam: XR Left Foot Exam date and time: 06/23/2022 6:33 PM Age: 56 years old Clinical indication: Injury or trauma; Fall; Sprain or strain; Foot; Left TECHNIQUE: Imaging protocol: Radiologic exam of the Left foot. Views: 3 or more views. COMPARISON: CR XR ANKLE LT MIN 3V 06/23/2022 6:31 PM FINDINGS: Bones/joints: No acute fracture or dislocation. Normal bone mineralization. Joint spaces are preserved. Soft tissues: Normal. IMPRESSION: No acute findings.
[2022-06-23 18:25] VITALS: BP 96/78; PULSE 91; RESP 22; TEMP 36.8; O2SAT 96; BMI 28.3
--- NOTE | 2022-06-23 18:35 | EXP.UTC ---
Discharge Plan Prescriptions Prescriptions: No Action gabapentin 100 mg capsule PO 90 Days Qty: 270 rosuvastatin 10 mg tablet PO 90 Days Qty: 90 prednisone 20 MG tablet 20 mg PO BID Qty: 10 0RF benzonatate 100 MG capsule 100 mg PO BID 7 Days Qty: 14 0RF levofloxacin 500 MG tablet 500 mg PO DAILY Qty: 7 0RF tizanidine 4 MG tablet 4 mg PO BIDP PRN (Reason: SPASMS) tramadol 50 MG tablet 50 mg PO TIDP PRN (Reason: PAIN) diclofenac sodium 75 MG tablet,delayed release (DR/EC) 75 mg PO BID losartan 50 MG tablet 50 mg PO DAILY Miscellaneous [Unknown Home Medication] 1 EACH Each 0 mg PO DAILY cyclobenzaprine 10 MG tablet 10 mg PO Q8HP PRN (Reason: Muscle Spasm) Qty: 30 0RF ibuprofen 600 MG tablet 600 mg PO Q6HP PRN (Reason: Mild Pain) Qty: 30 0RF methocarbamol 500 MG tablet 500 mg PO BIDP PRN (Reason: Muscle Spasm) Qty: 30 0RF methocarbamol 500 MG tablet 500 mg PO BIDP PRN (Reason: Muscle Spasm) Qty: 30 0RF methylprednisolone 4 MG tablets,dose pack 4 mg PO DIRECTED 6 Days Qty: 21 0RF amoxicillin-pot clavulanate 1 EACH tablet 1 tab PO Q12H 10 Days Qty: 20 0RF Referrals Follow up/Referrals: Andrade Issa [Primary Care Provider] - See instructions Discharge ED Provider: Sriram Ruth [facility] General Stated complaint: AO fell 9/2 @HOME foot pain Time Seen by Provider: 06/23/22 18:35 History of Present Illness Provider Complaint: She c/o sinus congestion and sinus pressure for the past 2 days. She refuses a covid-19 test. Related Data Home Medications Medication Instructions Recorded Confirmed Miscellaneous [Unknown Home 0 mg PO DAILY Cholesterol 05/05/18 12/17/18 Medication] diclofenac sodium 75 mg 75 mg PO BID [PAIN 05/05/18 12/17/18 tablet,delayed release losartan 50 mg tablet 50 mg PO DAILY BLOOD PRESSURE 05/05/18 12/17/18 tizanidine 4 mg tablet 4 mg PO BIDP PRN SPASMS 05/05/18 12/17/18 tramadol 50 mg tablet 50 mg PO TIDP PRN PAIN 05/05/18 12/17/18 gabapentin 100 mg capsule PO 90 days #270 caps 12/17/18 12/17/18 rosuvastatin 10 mg tablet PO 90 days #90 tabs 12/17/18 12/17/18 Previous Rx's Medication Instructions Recorded cyclobenzaprine 10 mg tablet 10 mg PO Q8HP PRN Muscle Spasm #30 10/26/18 tabs ibuprofen 600 mg tablet 600 mg PO Q6HP PRN Mild Pain #30 05/12/19 tabs methocarbamol 500 mg tablet 500 mg PO BIDP PRN Muscle Spasm 05/12/19 #30 tabs benzonatate 100 mg capsule 100 mg PO BID Cough/cold 7 days 05/29/19 #14 caps prednisone 20 mg tablet 20 mg PO BID #10 tabs 05/29/19 amoxicillin 875 mg-potassium 1 tab PO Q12H 10 days #20 tabs 07/09/19 clavulanate 125 mg tablet methocarbamol 500 mg tablet 500 mg PO BIDP PRN Muscle Spasm 07/09/19 #30 tabs methylprednisolone 4 mg tablets in 4 mg PO DIRECTED 6 days ##21 07/09/19 a dose pack levofloxacin 500 mg tablet 500 mg PO DAILY #7 tabs 02/19/22 Allergies Allergy/AdvReac Type Severity Reaction Status Date / Time No Known Allergies Allergy Verified 02/19/22 20:54 [facility] Medical History Hyperlipidemia Hypertension Surgical History (Updated 06/23/22 @ 18:38 by Salome Myers RN) History of hysterectomy History of tonsillectomy Social History (Updated 06/23/22 @ 18:38 by Salome Myers RN) Smoking Status: Never smoker second hand exposure: Yes alcohol intake: never substance use type: denies use current occupational status: employed Travel in the last 8 weeks: None household members: spouse and children housing: house current occupation: [employer] current occupational exposures/hazards: No caffeine: Yes ROS Obtained: Yes All systems reviewed & no additional complaints except as documented Constitutional Constitutional: Denies chills, Reports fever(s) and Reports poor appetite Eyes Eyes: Denies eye discharge ENT Ears, Nose, Mouth, and Throa
[2022-06-23 19:35] VITALS: BP 96/78; PULSE 91; RESP 22; TEMP 36.8; O2SAT 96
--- NOTE | 2022-07-05 08:48 | EXP.UTC ---
Discharge Plan Disposition Patient Disposition: Home, Self-Care Condition: Good Prescriptions Prescriptions: New ibuprofen [ibuprofen] 600 mg tablet 600 mg PO Q6HP PRN (Reason: Mild Pain) Qty: 30 0RF No Action gabapentin 100 mg capsule PO 90 Days Qty: 270 rosuvastatin 10 mg tablet PO 90 Days Qty: 90 prednisone 20 MG tablet 20 mg PO BID Qty: 10 0RF benzonatate 100 MG capsule 100 mg PO BID 7 Days Qty: 14 0RF levofloxacin 500 MG tablet 500 mg PO DAILY Qty: 7 0RF tizanidine 4 MG tablet 4 mg PO BIDP PRN (Reason: SPASMS) tramadol 50 MG tablet 50 mg PO TIDP PRN (Reason: PAIN) diclofenac sodium 75 MG tablet,delayed release (DR/EC) 75 mg PO BID losartan 50 MG tablet 50 mg PO DAILY Miscellaneous [Unknown Home Medication] 1 EACH Each 0 mg PO DAILY cyclobenzaprine 10 MG tablet 10 mg PO Q8HP PRN (Reason: Muscle Spasm) Qty: 30 0RF ibuprofen 600 MG tablet 600 mg PO Q6HP PRN (Reason: Mild Pain) Qty: 30 0RF methocarbamol 500 MG tablet 500 mg PO BIDP PRN (Reason: Muscle Spasm) Qty: 30 0RF methocarbamol 500 MG tablet 500 mg PO BIDP PRN (Reason: Muscle Spasm) Qty: 30 0RF methylprednisolone 4 MG tablets,dose pack 4 mg PO DIRECTED 6 Days Qty: 21 0RF amoxicillin-pot clavulanate 1 EACH tablet 1 tab PO Q12H 10 Days Qty: 20 0RF Referrals Follow up/Referrals: Andrade Issa [Primary Care Provider] - See instructions Margo Aquino DPM [Staff Physician] - See instructions Activity Restrictions/Add. Instructions Additional Instructions/Restrictions: Rest the extremity, Elevate the extremity as tolerated while you are resting. Take ibuprofen for pain. Follow up with Dr. Aquino (podiatry). Sometimes there can be fractures that don't show up well on the first set of x-rays. So, Make sure you should follow up. I put in a referral but you need to call her office and schedule an appointment. Follow up with your regular doctor. GO TO THE ER FOR ANY WORSENING SYMPTOMS Clinical Impressions Clinical Impression: Acute pain of left foot, Injury of foot, left Instructions Patient Instructions: DI for Ankle Sprain, Ankle Sprain, DI for Foot Sprain Discharge ED Provider: Sriram Ruth [facility] General Stated complaint: AO fell 06/14 @HOME foot pain Mode of Arrival: Ambulatory Source of Information: Patient Limitations: No Limitations Time Seen by Provider: 06/23/22 18:35 Description of Symptoms (Recalled from Triage Doc. by RN): PATIENT C/O INJURY TO LEFT FOOT AFTER FALLING A WEEK AGO HEENT Symptoms (Recalled from RN notes): No Resp Symptoms (Recalled from RN notes): No Skin Symptoms (Recalled from RN notes): No MS Symptoms (Recalled from RN notes): Yes Functional Status (Recalled from RN notes): WNL History of Present Illness Provider Complaint: She states that she fell an twisted her left ankle 1 week ago. Since then she has pain in her left foot and ankle that is worse with bearing weight and walking. Ibuprofen has helped some, but she is concerned that she is still having pain. Related Data Home Medications Medication Instructions Recorded Confirmed Miscellaneous [Unknown Home 0 mg PO DAILY Cholesterol 05/05/18 12/17/18 Medication] diclofenac sodium 75 mg 75 mg PO BID [PAIN 05/05/18 12/17/18 tablet,delayed release losartan 50 mg tablet 50 mg PO DAILY BLOOD PRESSURE 05/05/18 12/17/18 tizanidine 4 mg tablet 4 mg PO BIDP PRN SPASMS 05/05/18 12/17/18 tramadol 50 mg tablet 50 mg PO TIDP PRN PAIN 05/05/18 12/17/18 gabapentin 100 mg capsule PO 90 days #270 caps 12/17/18 12/17/18 rosuvastatin 10 mg tablet PO 90 days #90 tabs 12/17/18 12/17/18 Previous Rx's Medication Instructions Recorded cyclobenzaprine 10 mg tablet 10 mg PO Q8HP PRN Muscle Spasm #30 10/26/18 tabs ibuprofen 600 mg tablet 600 mg PO Q6HP PRN Mild Pain #30 05/12/19 tabs methocarbamol 500 mg tablet 500 mg PO BIDP PRN Muscle Spasm 05/12/19 #30
== END 2022-06-23 19:39 | disposition home or self-care (01) ==
PROVIDERS: Emergency Provider Nurse Practitioner Family; PCP Family Medicine
DX: M79.672 Pain in left foot (principal); W19.XXXA Unspecified fall, initial encounter
CPT/HCPCS: 73610; 73630; 99212; G0463

== ENCOUNTER 2022-08-11 19:43 | Emergency (ER) | payer BC, SELFPAY ==
[2022-08-11 19:44] VITALS: BP 121/73; PULSE 87; RESP 22; TEMP 36.6; O2SAT 96; BMI 27.4
--- NOTE | 2022-08-11 21:09 | HMH.EDBACK ---
Discharge Plan Disposition Patient Disposition: Home, Self-Care Prescriptions Prescriptions: New prednisone [prednisone] 20 mg tablet 20 mg PO BID Qty: 10 0RF No Action rosuvastatin 10 mg tablet PO 90 Days Qty: 90 hydrochlorothiazide 25 mg tablet 25 mg PO ibuprofen [ibuprofen] 600 mg tablet 600 mg PO Q6HP PRN (Reason: Mild Pain) Qty: 30 0RF Referrals Follow up/Referrals: Andrade Issa [Primary Care Provider] - See instructions Clinical Impressions Clinical Impression: Thoracic back pain Instructions Patient Instructions: DI for Thoracic Back Pain Discharge ED Provider: Luis Parada Back Pain HPI General Chief Complaint: Back Pain/Injury Stated Complaint: back spasms Time Seen by Provider: 08/11/22 21:09 Mode of Arrival: Ambulatory Source of Information: Patient and Medical Record Limitations: No Limitations Description of Symptoms (Recalled from ER Triage Doc. by RN): pt states she has chronic muscle spasm in her upper mid back slightly more to the right for 27 yr. 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 Complaint: back pain Onset (ago): day(s) Duration: intermittent Similar Symptoms Previously: Yes Location: thoracic spine Severity: moderate Relieving factors: movement Associated symptoms: denies other symptoms Treatments prior to arrival: other medications Related Data Home Medications Medication Instructions Recorded Confirmed rosuvastatin 10 mg tablet PO 90 days #90 tabs 12/17/18 07/31/22 hydrochlorothiazide 25 mg tablet 25 mg PO 07/05/22 07/31/22 Previous Rx's Medication Instructions Recorded ibuprofen 600 mg tablet 600 mg PO Q6HP PRN Mild Pain #30 06/23/22 tabs prednisone 20 mg tablet 20 mg PO BID #10 tabs 08/11/22 Allergies Allergy/AdvReac Type Severity Reaction Status Date / Time No Known Allergies Allergy Verified 07/31/22 10:14 [facility] Medical History (Updated 08/11/22 @ 21:22 by Luis Parada MD) Hyperlipidemia Hypertension Injury of foot, left Surgical History History of hysterectomy History of tonsillectomy Social History Smoking Status: Former smoker pack-years: 45 second hand exposure: Yes alcohol intake: never substance use type: denies use current occupational status: employed Travel in the last 8 weeks: None household members: spouse and children housing: house current occupation: [employer] current occupational exposures/hazards: No caffeine: Yes ROS Obtained: Yes All systems reviewed & no additional complaints except as documented Physical Exam General General appearance: alert Head Head exam: normocephalic Eye Eye exam: Present PERRL and EOMI ENT ENT exam: Present mucous membranes moist Neck Neck exam: Present trachea midline Respiratory Respiratory exam: Absent respiratory distress Cardiovascular Cardiovascular exam: Present regular rate Abdominal Exam Abdominal exam: Present soft Extremities Exam Extremities exam: Present full ROM Back Exam Back exam: Present tenderness Neurological Exam Neurological exam: Present alert, oriented X3 and CN II-XII intact; Absent motor sensory deficit Psychiatric Psychiatric exam: Present normal affect Skin Skin exam: Absent rash Medical Decision Making Medical Records Medical records reviewed: Yes I reviewed the patient's medical records. Bryce Inquiry Pt receiving controlled substance: No Vital Signs: 08/11/22 19:44 Temperature 97.8 F Temperature Source Oral Pulse Rate [Left] 87 Respiratory Rate 22 Blood Pressure [Right Arm] 121/73 B
[2022-08-11 21:36] VITALS: BP 129/81; PULSE 91; RESP 20; TEMP 36.6; O2SAT 96
== END 2022-08-11 21:38 | disposition home or self-care (01) ==
PROVIDERS: Emergency Provider Emergency Medicine; PCP Family Medicine
DX: M54.6 Pain in thoracic spine (principal); Z79.899 Other long term (current) drug therapy; I10 Essential (primary) hypertension; E78.5 Hyperlipidemia, unspecified
CPT/HCPCS: 96372; 99283

== ENCOUNTER 2023-07-10 17:53 | Emergency (ER) | payer BC, OTHER, SELFPAY ==
[2023-07-10 18:10] VITALS: BP 155/80; PULSE 75; RESP 18; TEMP 36.7; O2SAT 98; BMI 28.3
--- NOTE | 2023-07-10 18:33 | EXP.UTC ---
Discharge Plan Disposition Patient Disposition: Home, Self-Care Prescriptions Prescriptions: New lidocaine 5 % adhesive patch,medicated 1 patch topical DAILY Qty: 15 0RF Rx Instructions: leave on most painful area for up to 12 hrs ketorolac 10 mg tablet 10 mg PO Q8H PRN (Reason: pain) 5 Days Qty: 15 0RF No Action potassium chloride 10 mEq capsule, extended release 10 meq PO DAILY valsartan 320 mg tablet 320 mg PO DAILY hydrochlorothiazide 25 mg tablet 25 mg PO DAILY ezetimibe 10 mg tablet 10 mg PO DAILY duloxetine 30 mg capsule,delayed release(DR/EC) 30 mg PO DAILY Referrals Follow up/Referrals: Provider,Referral, MD [Primary Care Provider] - See instructions Activity Restrictions/Add. Instructions Additional Instructions/Restrictions: Call your family doctor to establish care for this visit to the emergency department and schedule follow-up within 48 hours to ensure improvement. If you have any worsening of your condition or any other concerning signs or symptoms, return to the emergency department or your primary care doctor for further evaluation. Clinical Impressions Clinical Impression: Acute chest wall pain Discharge ED Provider: Ayo Wilkes [facility] General Chief complaint: PAIN Stated complaint: pain below both breasts Mode of Arrival: Ambulatory Source of Information: Patient Limitations: No Limitations Time Seen by Provider: 07/10/23 18:33 Description of Symptoms (Recalled from Triage Doc. by RN): Hurting under her breast bilaterally HEENT Symptoms (Recalled from RN notes): No Resp Symptoms (Recalled from RN notes): No Skin Symptoms (Recalled from RN notes): No MS Symptoms (Recalled from RN notes): Yes Functional Status (Recalled from RN notes): n/a Related Data Home Medications Medication Instructions Recorded Confirmed duloxetine 30 mg capsule,delayed 30 mg PO DAILY . 07/10/23 07/10/23 release ezetimibe 10 mg tablet 10 mg PO DAILY . 07/10/23 07/10/23 hydrochlorothiazide 25 mg tablet 25 mg PO DAILY . 07/10/23 07/10/23 potassium chloride 10 mEq 10 meq PO DAILY . 07/10/23 07/10/23 capsule,extended release valsartan 320 mg tablet 320 mg PO DAILY . 07/10/23 07/10/23 Previous Rx's Medication Instructions Recorded ketorolac 10 mg tablet 10 mg PO Q8H PRN pain 5 days #15 07/10/23 tabs lidocaine 5 % topical patch 1 patch topical DAILY #15 ea 07/10/23 Allergies Allergy/AdvReac Type Severity Reaction Status Date / Time No Known Allergies Allergy Verified 07/10/23 18:33 Worker's Comp Is this a Worker's Comp case?: No [facility] Disclaimer: The information contained in this section may have been updated after the patient was seen, as this information can be updated by other users. Medical History (Updated 07/10/23 @ 23:19 by Ayo Wilkes MD) Hyperlipidemia Hypertension Injury of foot, left Surgical History History of hysterectomy History of tonsillectomy Social History Smoking Status: Unknown if ever smoked second hand exposure: Yes alcohol intake: never substance use type: denies use current occupational status: employed Travel in the last 8 weeks: None household members: spouse and children housing: house current occupation: [employer] current occupational exposures/hazards: No caffeine: Yes ROS Obtained: Yes All systems reviewed & no additional complaints except as documented Constitutional Constitutional: Denies chills and Denies fever(s) Eyes Eyes: Denies eye discharge ENT Ears, Nose, Mouth, and Throat: Denies dizziness, Denies otalgia and Denies sore throat Cardiovascular Cardiovascular: Reports as per HPI and Reports chest pain Respiratory Respiratory: Denies shortness of breath, Denies chest congestion, Denies cough, Denies stridor and Denies wheezing Gastrointestinal Gastroint
[2023-07-10 18:54] LABS: Microscopic, Urine URINE MICROSCOPIC (MICROSCOPIC)
[2023-07-10 18:56] LABS: Appearance,Urine CLEAR (Clear); Bilirubin,Urine Negative (Negative); Blood, Urine Negative (Negative); Color,Urine YELLOW (Yellow); Glucose,Urine (UA) Negative (Negative); Ketones,Urine Negative (Negative); Leukocyte Esterase,Urine 1+ (Negative); Nitrate,Urine Negative (Negative); Protein,Urine Negative (Negative); Specific Gravity, Urine 1.025 (1.005-1.030); Urobilinogen,Urine 0.2 EU/dl (0.2)
[2023-07-10 19:10] LABS: Squamous Epithelial Cell,Urine Occasional #/hpf (0-5)
[2023-07-10 19:32] VITALS: BP 151/84; PULSE 75; RESP 18; TEMP 36.6; O2SAT 97; BMI 28.3
[2023-07-10 19:51] LABS: Basophils # 0.1 K/mm3 (0-0.2); Basophils % 0.9 % (0.1-2.0); Eosinophils # 0.1 K/mm3 (0.0-0.4); Eosinophils % 1.2 % (0.1-12.0); Hematocrit 44.3 % (37.0-47.0); Hemoglobin 14.2 g/dL (12.2-16.2); Lymphocytes # 2.3 K/mm3 (0.7-4.5); Lymphocytes % 38.2 % (10-50); Mean Corpuscular Hemoglobin 32.2 pg (27.0-31.2); Mean Corpuscular Volume 100.7 fl (81-99); Mean Platelet Volume 8.4 fl (7.4-10.4); Monocytes # 0.4 K/mm3 (0.1-1.0); Monocytes % 6.3 % (1.7-9.3); Neutrophils # 3.1 K/mm3 (1.8-7.8); Neutrophils % 53.4 % (37.0-80.0); Platelet Count 273 K/mm3 (142-424); Red Cell Distribution Width 12.8 % (11.5-17.5); White Blood Count 5.9 K/mm3 (4.8-10.8)
[2023-07-10 19:56] LABS: Alanine Aminotransferase 29 U/L (12-78); Albumin Level 4.4 g/dl (3.5-5.0); Albumin/Globulin Ratio 1.1 (1.1-1.8); Alkaline Phosphatase 109 U/L (38-126); Amylase 81 U/L (30-110); Anion Gap 13.9 mEq/L (5-15); Aspartate Amino Transferase 32 U/L (14-36); Bilirubin,Total 0.2 mg/dl (0.2-1.3); Blood Urea Nitrogen 21 mg/dl (7-17); Calcium 8.7 mg/dl (8.4-10.2); Carbon Dioxide 28 mmol/L (22.0-30.0); Chloride 104 mmol/L (98-107); Creatinine Clearance Estimated 85 mL/min (50-200); Estimated Glomerular Filt Rate 74 ml/min (>60); GFR (African American) 89 ML/MIN (>60); Globulin 3.9 g/dL (1.3-3.2); Glucose 101 mg/dl (74-100); Lipase 160 U/L (23-300); Potassium 3.9 mmoL/L (3.5-5.1); Sodium 142 mmol/L (136-145); Total Protein,Serum 8.3 g/dl (6.3-8.2)
--- NOTE | 2023-07-10 20:31 | XR_ITS ---
PROCEDURE INFORMATION: Exam: XR Chest Exam date and time: 07/10/2023 8:28 PM Age: 57 years old Clinical indication: Pain; Right-sided and left-sided; Additional info: Lower chest wall pain, L and R TECHNIQUE: Imaging protocol: Radiologic exam of the chest. Views: 2 views. COMPARISON: CT LUNG SCREENING 06/14/2022 8:10 AM FINDINGS: Lungs: Unremarkable. No consolidation. Pleural spaces: Unremarkable. No pleural effusion. No pneumothorax. Heart/Mediastinum: Unremarkable. No cardiomegaly. Bones/joints: Unremarkable. IMPRESSION: No acute findings.
--- NOTE | 2023-07-10 22:09 | CT_ITS ---
PROCEDURE INFORMATION: Exam: CT Abdomen And Pelvis With Contrast Exam date and time: 07/10/2023 10:27 PM Age: 57 years old Clinical indication: Abdominal pain; Epigastric; Additional info: Epigastric bruising, pain TECHNIQUE: Imaging protocol: Computed tomography of the abdomen and pelvis with contrast. Radiation optimization: All CT scans at this facility use at least one of these dose optimization techniques: automated exposure control; mA and/or kV adjustment per patient size (includes targeted exams where dose is matched to clinical indication); or iterative reconstruction. Contrast material: ISOVUE; Contrast volume: 75 ml; Contrast route: IV; REPORTING DATA: Count of CT and Cardiac NM exams in prior 12 months: This patient has received 0 known CTs and 0 known cardiac nuclear medicine studies in the 12 months prior to the current study. COMPARISON: CT ABDOMEN PELVIS WO CON 02/19/2022 10:46 PM FINDINGS: Lungs: Mild bibasilar atelectasis and/or scarring. Liver: Normal. Gallbladder and bile ducts: Normal. Pancreas: Normal. Spleen: Splenic calcifications, compatible with prior granulomatous disease. Adrenal glands: Normal. No mass. Kidneys and ureters: Normal. Stomach and bowel: Colonic diverticulosis. Appendix: No evidence of appendicitis. Intraperitoneal space: Unremarkable. No free air. No significant fluid collection. Vasculature: Phleboliths within the pelvis. Atherosclerotic disease of the abdominal aorta and iliac arteries. Lymph nodes: Unremarkable. No enlarged lymph nodes. Urinary bladder: Unremarkable as visualized. Reproductive: Uterus is surgically absent. Bones/joints: No acute abnormality. Soft tissues: Normal. IMPRESSION: No acute abdominal or pelvic abnormality.
--- NOTE | 2023-07-10 23:15 | HMH.EDGENADL ---
Discharge Plan Disposition Patient Disposition: Home, Self-Care Prescriptions Prescriptions: New ketorolac 10 mg tablet 10 mg PO Q6H PRN (Reason: pain) 5 Days Qty: 14 0RF No Action potassium chloride 10 mEq capsule, extended release 10 meq PO DAILY valsartan 320 mg tablet 320 mg PO DAILY hydrochlorothiazide 25 mg tablet 25 mg PO DAILY ezetimibe 10 mg tablet 10 mg PO DAILY duloxetine 30 mg capsule,delayed release(DR/EC) 30 mg PO DAILY Referrals Follow up/Referrals: Provider,Referral, MD [Primary Care Provider] - See instructions Activity Restrictions/Add. Instructions Additional Instructions/Restrictions: Call your family doctor to establish care for this visit to the emergency department and schedule follow-up within 48 hours to ensure improvement. If you have any worsening of your condition or any other concerning signs or symptoms, return to the emergency department or your primary care doctor for further evaluation. Clinical Impressions Clinical Impression: Acute chest wall pain Discharge ED Provider: yAo Wilkes General Adult HPI General Chief complaint: PAIN Stated complaint: pain below both breasts Time Seen by Provider: 07/10/23 18:33 Mode of Arrival: Ambulatory Source of Information: Patient Limitations: No Limitations Description of Symptoms (Recalled from ER Triage Doc. by RN): Pt brought over from [facility]. Pt complains she had pain that started under her right breast 2 days ago, this morning she woke up with the left side hurting as well. Rates her pain 9/10. States it hurts to cough or laugh. Denies any hx of [place] or costochondritis, History of Present Illness HPI narrative: 57-year-old female with no relevant medical history presenting with bilateral upper abdominal/lower chest pain. Started 2 days ago. Started on the right side, now on the left side. Does not radiate, sharp, intermittent, has not noticed anything that makes it better. Tried heating pad, it helps, but she is afraid she will get a burn from it. No shortness of breath, nausea or vomiting, diaphoresis, fevers or chills, or any other concerns. No history of abdominal surgeries Related Data Home Medications Medication Instructions Recorded Confirmed duloxetine 30 mg capsule,delayed 30 mg PO DAILY . 07/10/23 07/10/23 release ezetimibe 10 mg tablet 10 mg PO DAILY . 07/10/23 07/10/23 hydrochlorothiazide 25 mg tablet 25 mg PO DAILY . 07/10/23 07/10/23 potassium chloride 10 mEq 10 meq PO DAILY . 07/10/23 07/10/23 capsule,extended release valsartan 320 mg tablet 320 mg PO DAILY . 07/10/23 07/10/23 Previous Rx's Medication Instructions Recorded ketorolac 10 mg tablet 10 mg PO Q6H PRN pain 5 days #14 07/10/23 tabs Allergies Allergy/AdvReac Type Severity Reaction Status Date / Time No Known Allergies Allergy Verified 07/10/23 18:33 [facility] Disclaimer: The information contained in this section may have been updated after the patient was seen, as this information can be updated by other users. Medical History (Updated 07/10/23 @ 23:19 by Ayo Wilkes MD) Hyperlipidemia Hypertension Injury of foot, left Surgical History History of hysterectomy History of tonsillectomy Social History Smoking Status: Unknown if ever smoked second hand exposure: Yes alcohol intake: never substance use type: denies use current occupational status: employed Travel in the last 8 weeks: None household members: spouse and children housing: house current occupation: [employer] current occupational exposures/hazards: No caffeine: Yes ROS Obtained: Yes All systems reviewed & no additional complaints except as documented Physical Exam General General appearance: alert and in no apparent distress Head Head exam: atraumatic and normocephalic Eye Eye exam: Present n
[2023-07-10 23:36] VITALS: BP 132/73; PULSE 64; RESP 17; TEMP 37.1; O2SAT 98
== END 2023-07-10 23:45 | disposition home or self-care (01) ==
LOC: UTC 17:59 → ER 19:22
PROVIDERS: Nurse Practitioner Family; Emergency Provider Emergency Medicine
DX: R07.89 Other chest pain (principal); R10.11 Right upper quadrant pain; R10.12 Left upper quadrant pain; I10 Essential (primary) hypertension; E78.5 Hyperlipidemia, unspecified
CPT/HCPCS: 71046; 74177; 80053; 81001; 82150; 83690; 85025; 87086; 96374; 96375; 99285; J0131; Q9967

== ENCOUNTER 2023-12-03 16:28 | Emergency (ER) | payer BC, OTHER, SELFPAY ==
[2023-12-03 17:47] VITALS: BP 145/83; PULSE 78; RESP 18; TEMP 37.7; O2SAT 98; BMI 27.4
--- NOTE | 2023-12-03 17:52 | ED_ITS ---
Discharge Plan Disposition Patient Disposition: Home, Self-Care Condition: Good Prescriptions Prescriptions: New amoxicillin-pot clavulanate 875-125 mg Tablet 1 tab PO Q12H 10 Days Qty: 20 0RF benzonatate 100 mg capsule 100 mg PO TID PRN (Reason: cough) Qty: 30 0RF guaifenesin [Mucinex] 600 mg tablet extended release 12hr 1,200 mg PO BID PRN (Reason: cough) Qty: 20 0RF No Action potassium chloride 10 mEq capsule, extended release 10 meq PO DAILY valsartan 320 mg tablet 320 mg PO DAILY hydrochlorothiazide 25 mg tablet 25 mg PO DAILY ezetimibe 10 mg tablet 10 mg PO DAILY duloxetine 30 mg capsule,delayed release(DR/EC) 30 mg PO DAILY lidocaine 5 % adhesive patch,medicated 1 patch topical DAILY Qty: 15 0RF Rx Instructions: leave on most painful area for up to 12 hrs ketorolac 10 mg tablet 10 mg PO Q8H PRN (Reason: pain) 5 Days Qty: 15 0RF Referrals Follow up/Referrals: Provider,Referral, MD [Primary Care Provider] - See instructions Activity Restrictions/Add. Instructions Additional Instructions/Restrictions: * Start antibiotic today. Be sure to complete entire prescription even if feeling better * Monitor temp. Tylenol every 4 hours as needed and / or ibuprofen every 6 hours as needed ( As long as your primary care physician has told you that it ok to take both. For fever/aches/pains ER if no less than 101 despite Tylenol or Motrin * Humidifier/vaporizer or hot steamy shower * Mucinex during the day for your cough and cough suppressant only at night. Be sure to drink lots of water. Insurance may not cover a prescriptions for mucinex. Might be cheaper to get 400mg tablets and take 2 tablet in the morning, mid-day and evening with lots of water. *Tessalon Perles will not cause drowsiness but use at bedtime to help stop cough so that you may get some rest. Follow up IMMEDIATELY for new or worsening of symptoms OR no noticeable improvement over the next 48-72 hours. 911 immediately for any life threatening symptoms such as chest pain or difficulty breathing Clinical Impressions Clinical Impression: Sinusitis Qualifiers: Sinusitis location: unspecified location Chronicity: unspecified Qualified Code(s): J32.9 - Chronic sinusitis, unspecified Instructions Patient Instructions: DI for Sinusitis, Cough, Acute Bronchitis Discharge ED Provider: Joanna Zambrano [facility] [place] HPI General Stated complaint: cough Mode of Arrival: Ambulatory Source of Information: Patient Limitations: No Limitations Time Seen by Provider: 12/03/23 17:52 Description of Symptoms (Recalled from Triage Doc. by RN): Patient complaint of coughing, chest tightness and headache. HEENT Symptoms (Recalled from RN notes): Yes Resp Symptoms (Recalled from RN notes): No Skin Symptoms (Recalled from RN notes): No MS Symptoms (Recalled from RN notes): No Functional Status (Recalled from RN notes): wnl History of Present Illness Provider Complaint: Patient states that for about a week she has been having sinus pressure and drainage, chest congestion and cough States that got worse over the last few days and her cough has continued to get worse States that it feels like it is trying to move into her chest and States that she feels like she does when she has bronchitis Denies COVID exposure Related Data Home Medications Medication Instructions Recorded Confirmed duloxetine 30 mg capsule,delayed 30 mg PO DAILY . 07/10/23 07/10/23 release ezetimibe 10 mg tablet 10 mg PO DAILY . 07/10/23 07/10/23 hydrochlorothiazide 25 mg tablet 25 mg PO DAILY . 07/10/23 07/10/23 potassium chloride 10 mEq 10 meq PO DAILY . 07/10/23 07/10/23 capsule,extended release valsartan 320 mg tablet 320 mg PO DAILY . 07/10/23 07/10/23 Previous Rx's Medication Instructions Recorded ketorolac 10 mg tablet 10 mg PO Q8H PRN pain 5 days #15 07/10/23 tabs lidocaine 5 % topical patch 1 patch topical DAILY #15 ea 07/10/23 amoxicillin 875 mg-potassium 1 tab PO Q12H 10 days #20 tabs 12/03/23 clavulanate 125 mg tablet benzonatate 100 mg capsule 100 mg PO TID PRN cough #30 caps 12/03/23 guaifenesin 600 mg tablet, 1,200 mg PO BID PRN cough #20 tabs 12/03/23 extended release 12 hr (Mucinex) Allergies Allergy/AdvReac Type Severity Reaction Status Date / Time No Known Allergies Allergy Verified 07/10/23 18:33 Worker's Comp Is this a Worker's Comp case?: No [facility] Disclaimer: The information contained in this section may have been updated after the patient was seen, as this information can be updated by other users. Medical History (Updated 12/03/23 @ 18:03 by Joanna Zambrano APRN) Hyperlipidemia Hypertension Injury of foot, left Surgical History History of hysterectomy History of tonsillectomy Social History Smoking Status: Unknown if ever smoked second hand exposure: Yes alcohol intake: never substance use type: denies use current occupational status: employed Travel in the last 8 weeks: None household members: spouse and children housing: house current occupation: [employer] current occupational exposures/hazards: No caffeine: Yes ROS Obtained: Yes All systems reviewed & no additional complaints except as documented and Yes Systems reviewed as appropriate & no additional complaints except as documented Constitutional Constitutional: Reports system reviewed and no additional complaints, except as documented, Reports as per HPI and Reports headache(s) ENT Ears, Nose, Mouth, and Throat: Reports system reviewed and no additional compl aints, except as documented, Reports headache(s), Reports nasal congestion and Reports sinus pressure Cardiovascular Cardiovascular: Reports system reviewed and no additional complaints, except as documented and Reports as per HPI Respiratory Respiratory: Reports system reviewed and no additional complaints, except as documented, Reports as per HPI, Reports chest congestion, Reports cough and Reports pain with cough (at times) Gastrointestinal Gastrointestingal: Reports system reviewed and no additional complaints, except as documented and as per HPI Neurologic Neurologic: Reports headache(s) Physical Exam General General appearance: alert and in no apparent distress ENT ENT exam: Present mucous membranes moist Expanded ENT Exam Nose exam: Present sinus tenderness Respiratory Respiratory exam: Present normal lung sounds bilaterally; Absent respiratory distress or wheezes Cardiovascular Cardiovascular exam: Present regular rate, normal rhythm and normal heart sounds Neurological Exam Neurological exam: Present alert, oriented X3 and normal gait Medical Decision Making Bryce Inquiry Pt receiving controlled substance: No Bryce was queried for this patient: No Vital Signs: 12/03/23 17:47 Temperature 99.8 F H Temperature Source Oral Pulse Rate [Radial] 78 Respiratory Rate 18 Blood Pressure [Right Arm] 145/83 H Blood Pressure Mean [Right Arm] 103 Blood Pressure Source [Right Arm] Automatic Cuff Blood Pressure Position [Right Arm] Sitting 02 Sat by Pulse Oximetry 98 Oxygen Delivery Method Room Air Lab Data Lab results reviewed: Yes I reviewed the patient's lab results.
[2023-12-03 17:57] LABS: UTC Influenza A Antigen Negative (Negative); UTC Influenza B Antigen Negative (Negative)
[2023-12-03 18:06] VITALS: BP 145/83; PULSE 78; RESP 18; TEMP 37.7; O2SAT 98
== END 2023-12-03 18:10 | disposition home or self-care (01) ==
PROVIDERS: Emergency Provider Nurse Practitioner
DX: J20.9 Acute bronchitis, unspecified (principal); J01.90 Acute sinusitis, unspecified; R05.9 Cough, unspecified; I10 Essential (primary) hypertension; E78.5 Hyperlipidemia, unspecified
CPT/HCPCS: 87804; 99212; 99214; G0463

== ENCOUNTER 2023-12-19 08:24 | Emergency (ER) | payer BC, OTHER, SELFPAY ==
[2023-12-19 08:25] VITALS: BP 136/86; PULSE 70; RESP 18; TEMP 36.6; O2SAT 97; BMI 28.3
[2023-12-19 08:45] VITALS: BP 132/83; PULSE 72; RESP 22; O2SAT 97
--- NOTE | 2023-12-19 08:54 | PC.NURSE ---
DR WEST AT BEDSIDE
[2023-12-19 09:01] VITALS: BP 127/80; PULSE 73; RESP 20; O2SAT 95
--- NOTE | 2023-12-19 09:01 | CT_ITS ---
FINAL REPORT CLINICAL HISTORY: LLQ abd pain COMPARISON: 07/10/2023 FINDINGS: CT OF THE ABDOMEN AND PELVIS WITH CONTRAST Axial CT images of the abdomen and pelvis were obtained after the administration of IV contrast. Coronal reformatted images were also obtained and reviewed.This study was performed with techniques to keep radiation doses as low as reasonably achievable (ALARA). Individualized dose reduction techniques using automated exposure control or adjustment of mA and/or kV according to the patient''s size were employed. Abdomen: There is bibasilar atelectasis.. The heart is normal in size. The liver is fatty infiltrated. The spleen is unremarkable. No adrenal mass is present. The pancreas has an unremarkable appearance. The kidneys are normal, without evidence of mass or hydronephrosis. The aorta is normal in caliber. There is no free fluid or adenopathy. No mass or abnormal fluid collection is seen. Pelvis: The appendix is not visualized. There is acute proximal sigmoid diverticulitis. There is no evidence of abscess. There is no evidence of bowel obstruction. The urinary bladder is unremarkable. Post hysterectomy. There is no evidence of mass or adenopathy. IMPRESSION: Acute proximal sigmoid diverticulitis. Reviewed, Interpreted and Dictated by Dc Marquis III, MD Transcribed by Mimi Suazo Authenticated and [facility]
--- NOTE | 2023-12-19 09:03 | ED_ITS ---
Discharge Plan Disposition Patient Disposition: Home, Self-Care Prescriptions Prescriptions: New levofloxacin 750 mg tablet 750 mg PO DAILY 7 Days Qty: 7 0RF No Action amoxicillin-pot clavulanate 875-125 mg Tablet 1 tab PO Q12H 10 Days Qty: 20 0RF benzonatate 100 mg capsule 100 mg PO TID PRN (Reason: cough) Qty: 30 0RF guaifenesin [Mucinex] 600 mg tablet extended release 12hr 1,200 mg PO BID PRN (Reason: cough) Qty: 20 0RF potassium chloride 10 mEq capsule, extended release 10 meq PO DAILY valsartan 320 mg tablet 320 mg PO DAILY hydrochlorothiazide 25 mg tablet 25 mg PO DAILY ezetimibe 10 mg tablet 10 mg PO DAILY duloxetine 30 mg capsule,delayed release(DR/EC) 30 mg PO DAILY lidocaine 5 % adhesive patch,medicated 1 patch topical DAILY Qty: 15 0RF Rx Instructions: leave on most painful area for up to 12 hrs ketorolac 10 mg tablet 10 mg PO Q8H PRN (Reason: pain) 5 Days Qty: 15 0RF Referrals Follow up/Referrals: Provider,Referral, MD [Primary Care Provider] - See instructions Activity Restrictions/Add. Instructions Additional Instructions/Restrictions: You had evidence of uncomplicated sigmoid diverticulitis. I would call your senior chemical engineer and see if they want to delay your colonoscopy for next week. I would still recommend that you follow-up closely with them to ensure resolution. There is no evidence of abscess or perforation or need for surgical intervention at the moment. Please take antibiotics as prescribed and return with any worsening symptoms. Clinical Impressions Clinical Impression: Diverticulitis Instructions Patient Instructions: DI for Acute Abdominal Pain Discharge ED Provider: Cari Feliciano General Adult HPI General Chief complaint: Abdominal Pain Stated complaint: Pain in L abd, weakness, fatigue Time Seen by Provider: 12/19/23 08:51 Mode of Arrival: Ambulatory Source of Information: Patient Limitations: No Limitations Description of Symptoms (Recalled from ER Triage Doc. by RN): PT C/O LLQ PAIN, DIARRHEA AND FATIGUE AFTER FINISHING ABX FOR SINUS INFECTION. PT DENIES N/V. NO FEVER History of Present Illness HPI narrative: Patient is a 58-year-old who presents today with left lower quadrant abdominal pain and diarrhea. States she recently had a antibiotic given to her for sinus infection but has had no other problems in the past. She has a history of colon cancer in her family she gets colonoscopies every 5 years but has never had an abnormal colonoscopy in the past. She has 1 scheduled for next week in fact. No history of diverticulosis or diverticulitis that she is aware of. No history of colitis. No blood in her stool. She also states she is been fatigued over the last several days. Related Data Home Medications Medication Instructions Recorded Confirmed duloxetine 30 mg capsule,delayed 30 mg PO DAILY . 07/10/23 07/10/23 release ezetimibe 10 mg tablet 10 mg PO DAILY . 07/10/23 07/10/23 hydrochlorothiazide 25 mg tablet 25 mg PO DAILY . 07/10/23 07/10/23 potassium chloride 10 mEq 10 meq PO DAILY . 07/10/23 07/10/23 capsule,extended release valsartan 320 mg tablet 320 mg PO DAILY . 07/10/23 07/10/23 Previous Rx's Medication Instructions Recorded ketorolac 10 mg tablet 10 mg PO Q8H PRN pain 5 days #15 07/10/23 tabs lidocaine 5 % topical patch 1 patch topical DAILY #15 ea 07/10/23 amoxicillin 875 mg-potassium 1 tab PO Q12H 10 days #20 tabs 12/03/23 clavulanate 125 mg tablet benzonatate 100 mg capsule 100 mg PO TID PRN cough #30 caps 12/03/23 guaifenesin 600 mg tablet, 1,200 mg (2 x 600 mg) PO BID PRN 12/03/23 extended release 12 hr (Mucinex) cough #20 tabs levofloxacin 750 mg tablet 750 mg PO DAILY 7 days #7 tabs 12/19/23 Allergies Allergy/AdvReac Type Severity Reaction Status Date / Time No Known Allergies Allergy Verified 07/10/23 18:33 [facility] Disclaimer: The information contained in this section may have been updated after the patient was seen, as this information can be updated by other users. Medical History (Updated 12/19/23 @ 11:31 by Cari Feliciano MD) Injury of foot, left Hyperlipidemia Hypertension Surgical History History of tonsillectomy History of hysterectomy Social History Smoking Status: Unknown if ever smoked second hand exposure: Yes alcohol intake: never substance use type: denies use current occupational status: employed Travel in the last 8 weeks: None household members: spouse and children housing: house current occupation: [employer] current occupational exposures/hazards: No caffeine: Yes ROS Obtained: Yes All systems reviewed & no additional complaints except as documented Physical Exam General General appearance: alert Respiratory Respiratory exam: Present normal lung sounds bilaterally; Absent respiratory distress Cardiovascular Cardiovascular exam: Present regular rate and normal rhythm Abdominal Exam Abdominal exam: Present soft; Absent distention or tenderness Neurological Exam Neurological exam: Present alert and oriented X3 Medical Decision Making Bryce Inquiry Pt receiving controlled substance: No Vital Signs: 12/19/23 08:25 12/19/23 08:45 12/19/23 09:01 Temperature 97.8 F Temperature Source Oral Pulse Rate 72 73 Pulse Rate [Radial] 70 Respiratory Rate 18 22 20 Blood Pressure 132/83 127/80 Blood Pressure [Right Arm] 136/86 Blood Pressure Mean 106 95 Blood Pressure Mean [Right Arm] 102 Blood Pressure Source [Right Arm] Automatic Cuff Blood Pressure Position [Right Arm] Sitting 02 Sat by Pulse Oximetry 97 97 95 Oxygen Delivery Method Room Air 12/19/23 09:16 Temperature Temperature Source Pulse Rate 73 Pulse Rate [Radial] Respiratory Rate 20 Blood Pressure 120/66 Blood Pressure [Right Arm] Blood Pressure Mean 85 Blood Pressure Mean [Right Arm] Blood Pressure Source [Right Arm] Blood Pressure Position [Right Arm] 02 Sat by Pulse Oximetry 94 L Oxygen Delivery Method Lab Data Lab results reviewed: Yes I reviewed the patient's lab results. Lab Results 12/19/23 08:40: WBC 6.4, RBC 4.20, Hgb 13.7, Hct 44.0, MCV 104.7 H, MCH 32.6 H, MCHC 31.1 L, RDW 12.8, Plt Count 248, MPV 8.2, Neut % (Auto) 58.5, Lymph % (Auto) 31.1, [place] % (Auto) 7.1, Eos % (Auto) 2.4, Baso % (Auto) 0.8, Neut # (Auto) 3.7, Lymph # (Auto) 2.0, [place] # (Auto) 0.5, Eos # (Auto) 0.2, Baso # (Auto) 0.1, Sodium 141, Potassium 4.4, Chloride 105, Carbon Dioxide 29, Anion Gap 11.4, BUN 14, Creatinine 0.80, Estimated Creat Clear 84, Estimated GFR 73, Est GFR ( Amer) 89, Glucose 114 H, Calcium 8.7, Total Bilirubin 0.7, AST 29, ALT 23, Alkaline Phosphatase 116, Total Protein 7.3, Albumin 4.3, Globulin 3.0, Albumin/Globulin Ratio 1.4 12/19/23 09:07: Lactate 0.7 12/19/23 08:40 12/19/23 08:40 Orders (Tests/Meds): ED MEDICATIONS Generic Name Dose Route Start Last Admin Trade Name Freq PRN Reason Stop Dose Admin Sodium Chloride 10 ml 12/19/23 09:48 12/19/23 09:50 Sodium Chloride 0.9% 10ml Syr (Rad Only) IV 01/18/24 09:47 10 ml NEEDED PRN Administration Maintain IV Site Discontinued Medications Generic Name Dose Route Start Last Admin Trade Name Freq PRN Reason Stop Dose Admin Lactated Ringer's 1,000 mls @ 999 mls/hr 12/19/23 09:15 12/19/23 09:08 Lactated Ringer's 1000 Ml Bag IV 12/19/23 10:15 999 mls/hr .Q1H1M JAYANT Administration Iopamidol 75 ml 12/19/23 09:48 12/19/23 09:50 Iopamidol-370 (76%);100ml Bottle IV 12/19/23 09:49 75 ml ONCE ONE Administration Morphine Sulfate 4 mg 12/19/23 09:01 12/19/23 09:08 Morphine 4mg/Ml Syringe IV 12/19/23 09:02 4 mg ONCE ONE Administration Ondansetron HCl 4 mg 12/19/23 09:01 12/19/23 09:08 Ondansetron 4mg/2ml Vial IV 12/19/23 09:02 4 mg ONCE ONE Administration ORDERS Category Date Time Status CT abdomen pelvis w con Stat Cat Scan 12/19/23 09:01 Completed CBC w/Auto Diff [Complete Blood Count Auto Diff] Stat Lab 12/19/23 08:40 Completed CMP [Comprehensive Metabolic Panel] Stat Lab 12/19/23 08:40 Completed Diarrhea 23 Panel, PCR Stat Lab 12/19/23 09:03 Ordered Lactic Acid Stat Lab 12/19/23 09:07 Completed UA [Urinalysis and Microscopic] Stat Lab 12/19/23 09:02 Ordered Medical Decision Narrative: Patient is a 58-year-old female present today with left lower quadrant abdominal pain and diarrhea. Differential includes colitis which could be infectious ischemic or inflammatory, diverticulitis, constipation, urinary tract infection, kidney stone etc. I am also concerned about possible C. difficile colitis in the setting of recent antibiotic use. Will attempt to get the diarrhea specimen from her to send for testing. Will additionally we will get a CT scan with contrast to further differentiate this. IV fluids pain medicine nausea medicine has been administered. And will reassess. CT performed which I first interpreted shows uncomplicated sigmoid diverticulitis without abscess or perforation. Reassessment 1132 patient remains very stable serial abdominal exams are benign. Will treat her with antibiotic she was recently on Augmentin for sinus infection which is typically what I will prescribe in the setting of diverticulitis will not repeat this therefore Levaquin has been prescribed. She is been advised to call her senior chemical engineer whom she has an appointment with next week for an outpatient colonoscopy and I advised that she likely had this delayed but still needs to closely follow-up with them until she has resolution of her symptoms. No evidence of abscess or perforation or surgical intervention needed at the moment. She was discharged in improved and stable condition. Critical Care Critical Care Time Critical Care Time: No
--- NOTE | 2023-12-19 09:05 | PC.NURSE ---
UPDATED PT ON POC, LACTIC SENT. NO NEEDS AT THIS TIME
[2023-12-19] MEDS: LACTATED RINGERS 1000ML 1,000 ML 999 ML IV (09:08)
[2023-12-19] MEDS: ONDANSETRON 4MG/2ML VIAL 4 MG IV (09:08)
[2023-12-19] MEDS: MORPHINE 4MG/ML SYRINGE 4 MG IV (09:08)
[2023-12-19 09:12] LABS: Basophils # 0.1 K/mm3 (0-0.2); Basophils % 0.8 % (0.1-2.0); Eosinophils # 0.2 K/mm3 (0.0-0.4); Eosinophils % 2.4 % (0.1-12.0); Hemoglobin 13.7 g/dL (12.2-16.2); Lymphocytes % 31.1 % (10-50); Mean Corpuscular HGB Conc 31.1 g/dL (31.8-35.4); Mean Corpuscular Hemoglobin 32.6 pg (27.0-31.2); Mean Corpuscular Volume 104.7 fl (81-99); Mean Platelet Volume 8.2 fl (7.4-10.4); Monocytes # 0.5 K/mm3 (0.1-1.0); Monocytes % 7.1 % (1.7-9.3); Neutrophils # 3.7 K/mm3 (1.8-7.8); Neutrophils % 58.5 % (37.0-80.0); Platelet Count 248 K/mm3 (142-424); Red Cell Distribution Width 12.8 % (11.5-17.5); White Blood Count 6.4 K/mm3 (4.8-10.8)
[2023-12-19 09:16] VITALS: BP 120/66; PULSE 73; RESP 20; O2SAT 94
[2023-12-19 09:20] LABS: Alanine Aminotransferase 23 U/L (12-78); Albumin Level 4.3 g/dl (3.5-5.0); Albumin/Globulin Ratio 1.4 (1.1-1.8); Alkaline Phosphatase 116 U/L (38-126); Anion Gap 11.4 mEq/L (5-15); Aspartate Amino Transferase 29 U/L (14-36); Bilirubin,Total 0.7 mg/dl (0.2-1.3); Blood Urea Nitrogen 14 mg/dl (7-17); Calcium 8.7 mg/dl (8.4-10.2); Carbon Dioxide 29 mmol/L (22.0-30.0); Chloride 105 mmol/L (98-107); Creatinine Clearance Estimated 84 mL/min (50-200); Estimated Glomerular Filt Rate 73 ml/min (>60); GFR (African American) 89 ML/MIN (>60); Glucose 114 mg/dl (74-100); Potassium 4.4 mmoL/L (3.5-5.1); Sodium 141 mmol/L (136-145); Total Protein,Serum 7.3 g/dl (6.3-8.2)
[2023-12-19 09:25] LABS: Lactic Acid 0.7 mmol/L (0.7-2.1)
--- NOTE | 2023-12-19 09:38 | PC.NURSE ---
PT TO CT
--- NOTE | 2023-12-19 09:49 | PC.NURSE ---
PT RETURNED FROM CT
[2023-12-19] MEDS: SODIUM CHLORIDE 0.9% 10ML SYR (RAD ONLY) 10 ML IV (09:50)
[2023-12-19] MEDS: IOPAMIDOL-370 (76%);100ML BOTTLE 75 ML IV (09:50)
--- NOTE | 2023-12-19 11:25 | PC.NURSE ---
Rounded on pt to see if they had any needs. pt asked for somrthing to drink. checked with the Dr and he okayed it for the pt to have some water. pt was given some water and had no other needs at this time
--- NOTE | 2023-12-19 11:26 | PC.NURSE ---
DR WEST AT BEDSIDE TO UPDATE PT
[2023-12-19 11:35] VITALS: BP 141/75; PULSE 68; RESP 18; TEMP 36.5; O2SAT 97
== END 2023-12-19 11:35 | disposition home or self-care (01) ==
PROVIDERS: Emergency Provider Student in an Organized Health Care Education/Training Program
DX: R10.32 Left lower quadrant pain (principal); K57.32 Diverticulitis of large intestine without perforation or abscess without bleeding; R19.7 Diarrhea, unspecified; R53.83 Other fatigue; I10 Essential (primary) hypertension; E78.5 Hyperlipidemia, unspecified
CPT/HCPCS: 74177; 80053; 83605; 85025; 96361; 96374; 96375; 99285; J2405; Q9967

== ENCOUNTER 2024-04-19 16:52 | Emergency (ER) | payer BC, OTHER, SELFPAY ==
[2024-04-19 16:53] VITALS: BP 162/73; PULSE 65; RESP 18; TEMP 36.6; O2SAT 98; BMI 28.9
--- NOTE | 2024-04-19 17:45 | ED_ITS ---
<Statement entered by Dale Green MD - 04/19/24 18:54> I was consulted by the SOCORRO, and we discussed the complexity of the problems being addressed. I approved the treatment and management plan for this patient's care in the emergency department, thus performing a substantive portion of the medical decision making. I had discussion with patient at bedside, she received her yearly low-dose CT screening for pulmonary malignancy given her history of smoking and is compliant. Given this I do not think that it would be warranted in the emergency department today as well as the chronicity of her muscle spasm and the temporal relationship with her discontinuing her water aerobics and resurgence of symptoms. Dale Green MD Discharge Plan Disposition Patient Disposition: Home, Self-Care Condition: Good Prescriptions Prescriptions: New lidocaine 5 % adhesive patch,medicated 1 patch topical Q24H Qty: 30 0RF Rx Instructions: leave on most painful area for up to 12 hrs No Action amoxicillin-pot clavulanate 875-125 mg Tablet 1 tab PO Q12H 10 Days Qty: 20 0RF benzonatate 100 mg capsule 100 mg PO TID PRN (Reason: cough) Qty: 30 0RF guaifenesin [Mucinex] 600 mg tablet extended release 12hr 1,200 mg PO BID PRN (Reason: cough) Qty: 20 0RF levofloxacin 750 mg tablet 750 mg PO DAILY 7 Days Qty: 7 0RF potassium chloride 10 mEq capsule, extended release 10 meq PO DAILY valsartan 320 mg tablet 320 mg PO DAILY hydrochlorothiazide 25 mg tablet 25 mg PO DAILY ezetimibe 10 mg tablet 10 mg PO DAILY duloxetine 30 mg capsule,delayed release(DR/EC) 30 mg PO DAILY lidocaine 5 % adhesive patch,medicated 1 patch topical DAILY Qty: 15 0RF Rx Instructions: leave on most painful area for up to 12 hrs ketorolac 10 mg tablet 10 mg PO Q8H PRN (Reason: pain) 5 Days Qty: 15 0RF Referrals Follow up/Referrals: Provider,Referral, [Primary Care Provider] - See instructions Clinical Impressions Clinical Impression: Muscle spasm Instructions Patient Instructions: DI for Low Back Pain, DI for Muscle Spasm Discharge ED Provider: Dale Green General Adult HPI General Chief complaint: Back Pain/Injury Stated complaint: Muscle spasms Time Seen by Provider: 07/08/24 17:32 History of Present Illness HPI narrative: Patient presents for evaluation of muscle spasm. Patient has a longstanding history of right latissimus muscle spasms that is usually well-managed with muscle relaxers and physical therapy including aquatic aerobics. However patient has not gone in approximately 3 weeks. Patient states that last night she began having spasms that has been unable to break with her normal medication routine. She denies numbness tingling or loss of sensation in any extremity no radiation no trauma. No chest pain shortness of breath fever chills hemoptysis hematochezia melena nausea vomit diarrhea. Related Data Home Medications Medication Instructions Recorded Confirmed duloxetine 30 mg capsule,delayed 30 mg PO DAILY . 07/10/23 07/10/23 release ezetimibe 10 mg tablet 10 mg PO DAILY . 07/10/23 07/10/23 hydrochlorothiazide 25 mg tablet 25 mg PO DAILY . 07/10/23 07/10/23 potassium chloride 10 mEq 10 meq PO DAILY . 07/10/23 07/10/23 capsule,extended release valsartan 320 mg tablet 320 mg PO DAILY . 07/10/23 07/10/23 Previous Rx's Medication Instructions Recorded ketorolac 10 mg tablet 10 mg PO Q8H PRN pain 5 days #15 07/10/23 tabs lidocaine 5 % topical patch 1 patch topical DAILY #15 ea 07/10/23 amoxicillin 875 mg-potassium 1 tab PO Q12H 10 days #20 tabs 12/03/23 clavulanate 125 mg tablet benzonatate 100 mg capsule 100 mg PO TID PRN cough #30 caps 12/03/23 guaifenesin 600 mg tablet, 1,200 mg (2 x 600 mg) PO BID PRN 12/03/23 extended release 12 hr (Mucinex) cough #20 tabs levofloxacin 750 mg tablet 750 mg PO DAILY 7 days #7 tabs 12/19/23 lidocaine 5 % topical patch 1 patch topical Q24H #30 ea 04/19/24 Allergies Allergy/AdvReac Type Severity Reaction Status Date / Time No Known Allergies Allergy Verified 07/10/23 18:33 [facility] Disclaimer: The information contained in this section may have been updated after the patient was seen, as this information can be updated by other users. Medical History (Updated 04/19/24 @ 17:59 by SHANNON Myles) Injury of foot, left Hyperlipidemia Hypertension Surgical History History of tonsillectomy History of hysterectomy Social History Smoking Status: Current every day smoker tobacco type: cigarettes packs per day: 1 second hand exposure: Yes alcohol intake: never substance use type: denies use current occupational status: employed Travel in the last 8 weeks: None household members: spouse and children housing: house current occupation: [employer] current occupational exposures/hazards: No caffeine: Yes ROS Obtained: Yes Systems reviewed as appropriate & no additional complaints except as documented Physical Exam General General appearance: alert and in no apparent distress Respiratory Respiratory exam: Present normal lung sounds bilaterally Cardiovascular Cardiovascular exam: Present regular rate and normal rhythm Back Exam Back exam: Present normal inspection, tenderness and muscle spasm; Absent vertebral tenderness Back 1 view image: 2 1. Neurological Exam Neurological exam: Present alert and oriented X3 Medical Decision Making Medical Records Medical records reviewed: Yes I reviewed the patient's medical records. Bryce Inquiry Pt receiving controlled substance: No Vital Signs: 04/19/24 16:53 Temperature 97.9 F Temperature Source Oral Pulse Rate [Radial] 65 Respiratory Rate 18 Blood Pressure [Left Arm] 162/73 H Blood Pressure Mean [Left Arm] 102 Blood Pressure Source [Left Arm] Automatic Cuff Blood Pressure Position [Left Arm] Sitting 02 Sat by Pulse Oximetry 98 Oxygen Delivery Method Room Air Lab Data Lab results reviewed: Yes I reviewed the patient's lab results. Lab Results 04/19/24 17:45: WBC 5.9, RBC 4.11 L, Hgb 13.4, Hct 41.9, MCV 101.7 H, MCH 32.7 H , MCHC 32.1, RDW 13.4, Plt Count 240, MPV 8.2, Neut % (Auto) 55.5, Lymph % (Auto) 35.4, Elmore % (Auto) 5.9, Eos % (Auto) 2.4, Baso % (Auto) 0.9, Neut # (Auto) 3.3, Lymph # (Auto) 2.1, Elmore # (Auto) 0.4, Eos # (Auto) 0.1, Baso # (Auto) 0.1, Sodium 142, Potassium 4.0, Chloride 108 H, Carbon Dioxide 30, Anion Gap 8.0, BUN 13, Creatinine 0.80, Estimated GFR 73, Est GFR ( Amer) 89, G lucose 103 H, Calcium 9.4, Magnesium 2.1, Total Bilirubin 0.3, AST 30, ALT 26, Alkaline Phosphatase 91, Total Creatine Kinase 54, Total Protein 7.2, Albumin 4.2, Globulin 3.0, Albumin/Globulin Ratio 1.4 04/19/24 17:45 04/19/24 17:45 Orders (Tests/Meds): ED MEDICATIONS Generic Name Dose Route Start Last Admin Trade Name Freq PRN Reason Stop Dose Admin Diazepam 5 mg 04/19/24 18:47 Diazepam 10mg/2ml Syringe IV 04/19/24 18:48 ONCE ONE Discontinued Medications Generic Name Dose Route Start Last Admin Trade Name Freq PRN Reason Stop Dose Admin Acetaminophen 1,000 mg 04/19/24 17:36 04/19/24 17:59 Acetaminophen 1,000mg/100ml Vial IV 04/19/24 17:37 1,000 mg ONCE ONE Administration Dexamethasone Sodium Phosphate 10 mg 04/19/24 17:36 04/19/24 17:59 Dexamethasone 4mg/Ml 5ml Mdv IV 04/19/24 17:37 10 mg ONCE ONE Administration Lactated Ringer's 1,000 mls @ 999 mls/hr 04/19/24 17:36 04/19/24 17:59 Lactated Ringer's 1000 Ml Bag IV 04/19/24 18:36 999 mls/hr .Q1H1M ONE Administration Ketorolac Tromethamine 15 mg 04/19/24 17:36 04/19/24 17:59 Ketorolac 30mg/Ml Vial IV 04/19/24 17:37 15 mg ONCE ONE Administration Lidocaine 1 each 04/19/24 17:45 04/19/24 17:59 Lidocaine 5% Transdermal Patch TP 04/19/24 17:46 1 each ONCE ONE Administration ORDERS Category Date Time Status CBC w/Auto Diff [Complete Blood Count Auto Diff] Stat Lab 04/19/24 17:45 Completed CK [Creatine Kinase] Stat Lab 04/19/24 17:45 Completed CMP [Comprehensive Metabolic Panel] Stat Lab 04/19/24 17:45 Completed Magnesium Stat Lab 04/19/24 17:45 Completed Medical Decision Narrative: In summary patient is a 58-year-old female who presents to the emergency department for evaluation of muscle spasm. Patient is hemodynamically stable upon arrival, afebrile. Physical exam is remarkable for tenderness to palpation in the right latissimus dorsi below the patella with palpable knots but no deformity contusions abrasions ecchymosis noted.. Differential diagnosis includes muscle spasm versus electrolyte abnormality etc. Initial workup will be conducted with hematologic labs. Initial interventions include Decadron lidocaine patch. Initial workup reviewed by me shows that her hematologic labs and electrolytes are nonactionable.. Upon repeat evaluation patient unfortunately did not have any improvement with initial interventions. Given this we had an interactive discussion with the patient regarding a plan. We will send a prescription for lidocaine patches to her pharmacy. Patient will reinitiate water aerobics and will purchase a Thera gun and we will also give a one-time dose of IV Valium however her is going to drive her home. Patient to follow-up closely with her PCP and to return to the ER for any worsening signs or symptoms as needed. Critical Care Critical Care Time Critical Care Time: No
[2024-04-19] MEDS: KETOROLAC 30MG/ML VIAL 15 MG IV (17:59)
[2024-04-19] MEDS: LACTATED RINGERS 1000ML 1,000 ML 999 ML IV (17:59)
[2024-04-19] MEDS: DEXAMETHASONE 4MG/ML 5ML MDV 10 MG IV (17:59)
[2024-04-19] MEDS: LIDOCAINE 5% TRANSDERMAL PATCH 1 EACH TP (17:59)
[2024-04-19] MEDS: ACETAMINOPHEN 1,000MG/100ML VIAL 1000 MG IV (17:59)
[2024-04-19 18:06] LABS: Basophils # 0.1 K/mm3 (0-0.2); Basophils % 0.9 % (0.1-2.0); Eosinophils # 0.1 K/mm3 (0.0-0.4); Eosinophils % 2.4 % (0.1-12.0); Hematocrit 41.9 % (37.0-47.0); Hemoglobin 13.4 g/dL (12.2-16.2); Lymphocytes # 2.1 K/mm3 (0.7-4.5); Lymphocytes % 35.4 % (10-50); Mean Corpuscular HGB Conc 32.1 g/dL (31.8-35.4); Mean Corpuscular Hemoglobin 32.7 pg (27.0-31.2); Mean Corpuscular Volume 101.7 fl (81-99); Mean Platelet Volume 8.2 fl (7.4-10.4); Monocytes # 0.4 K/mm3 (0.1-1.0); Monocytes % 5.9 % (1.7-9.3); Neutrophils # 3.3 K/mm3 (1.8-7.8); Neutrophils % 55.5 % (37.0-80.0); Platelet Count 240 K/mm3 (142-424); Red Blood Count 4.11 M/mm3 (4.20-5.40); Red Cell Distribution Width 13.4 % (11.5-17.5); White Blood Count 5.9 K/mm3 (4.8-10.8)
[2024-04-19 18:11] LABS: Chloride 108 mmol/L (98-107)
[2024-04-19 18:12] LABS: Sodium 142 mmol/L (136-145)
[2024-04-19 18:14] LABS: Alanine Aminotransferase 26 U/L (12-78); Alkaline Phosphatase 91 U/L (38-126); Aspartate Amino Transferase 30 U/L (14-36); Bilirubin,Total 0.3 mg/dl (0.2-1.3); Blood Urea Nitrogen 13 mg/dl (7-17); Carbon Dioxide 30 mmol/L (22.0-30.0); Creatine Kinase 54 U/L (30-135); Estimated Glomerular Filt Rate 73 ml/min (>60); GFR (African American) 89 ML/MIN (>60); Magnesium 2.1 mg/dl (1.6-2.3)
[2024-04-19 18:15] LABS: Albumin Level 4.2 g/dl (3.5-5.0); Albumin/Globulin Ratio 1.4 (1.1-1.8); Calcium 9.4 mg/dl (8.4-10.2); Glucose 103 mg/dl (74-100); Total Protein,Serum 7.2 g/dl (6.3-8.2)
[2024-04-19] MEDS: diazePAM 10MG/2ML SYRINGE 5 MG IV (18:54)
[2024-04-19 19:27] VITALS: BP 140/64; PULSE 84; RESP 18; TEMP 37.1; O2SAT 97
== END 2024-04-19 19:29 | disposition home or self-care (01) ==
PROVIDERS: Physician Assistant; Emergency Provider Emergency Medicine
DX: M62.830 Muscle spasm of back (principal); I10 Essential (primary) hypertension; E78.5 Hyperlipidemia, unspecified; F17.210 Nicotine dependence, cigarettes, uncomplicated
CPT/HCPCS: 80053; 82550; 83735; 85025; 96361; 96374; 96375; 99284; J0131; J1885; J7120

== ENCOUNTER 2024-04-21 07:38 | Emergency (ER) | payer BC, OTHER, SELFPAY ==
[2024-04-21 07:42] VITALS: BP 173/97; PULSE 69; O2SAT 96
[2024-04-21 07:45] VITALS: BP 173/97; PULSE 74; RESP 20; TEMP 36.4; O2SAT 94; BMI 28.0
--- NOTE | 2024-04-21 07:56 | ED_ITS ---
Discharge Plan Disposition Patient Disposition: Home, Self-Care Condition: Good Prescriptions Prescriptions: New methocarbamol 1,000 mg tablet 1,000 mg PO Q8H PRN (Reason: muscle pain) Qty: 30 0RF acetaminophen 500 mg capsule 1,000 mg PO Q6H PRN (Reason: pain) Qty: 30 0RF No Action amoxicillin-pot clavulanate 875-125 mg Tablet 1 tab PO Q12H 10 Days Qty: 20 0RF benzonatate 100 mg capsule 100 mg PO TID PRN (Reason: cough) Qty: 30 0RF guaifenesin [Mucinex] 600 mg tablet extended release 12hr 1,200 mg PO BID PRN (Reason: cough) Qty: 20 0RF levofloxacin 750 mg tablet 750 mg PO DAILY 7 Days Qty: 7 0RF lidocaine 5 % adhesive patch,medicated 1 patch topical Q24H Qty: 30 0RF Rx Instructions: leave on most painful area for up to 12 hrs potassium chloride 10 mEq capsule, extended release 10 meq PO DAILY valsartan 320 mg tablet 320 mg PO DAILY hydrochlorothiazide 25 mg tablet 25 mg PO DAILY ezetimibe 10 mg tablet 10 mg PO DAILY duloxetine 30 mg capsule,delayed release(DR/EC) 30 mg PO DAILY lidocaine 5 % adhesive patch,medicated 1 patch topical DAILY Qty: 15 0RF Rx Instructions: leave on most painful area for up to 12 hrs ketorolac 10 mg tablet 10 mg PO Q8H PRN (Reason: pain) 5 Days Qty: 15 0RF Referrals Follow up/Referrals: Provider,Referral, MD [Primary Care Provider] - See instructions Activity Restrictions/Add. Instructions Additional Instructions/Restrictions: Return to the emergency department for new or worsening symptoms including trouble peeing or pooping including dysuria or weakness of your lower extremities. Schedule an appointment with physical therapy as soon as possible. Clinical Impressions Clinical Impression: Muscle spasm Discharge ED Provider: Marylin Wilkinson Adult HPI General Chief complaint: PAIN Stated complaint: back pain, no accident Time Seen by Provider: 04/21/24 07:43 Mode of Arrival: Ambulatory Source of Information: Patient Limitations: No Limitations Description of Symptoms (Recalled from ER Triage Doc. by RN): pt to ed via pov c/o thoracic pain. pt states she was seen in the ER a couple days ago for muscle spasms and is having recurrent pain. pt states she has been taking her prescribed muscle relaxers with no relief. pt denies any new injury. History of Present Illness HPI narrative: Patient is a 58-year-old with no significant past medical history who presents to the emergency department with back pain. Back pain has been going on for 3 weeks and has progressively worsened. Patient has been taking 500 mg of Robaxin lidocaine patches 800 mg of ibuprofen without relief. Patient notes that she usually does physical therapy and water aerobics however has not for the last 3 weeks because she has been busy at the [employer]. Patient has also tried heat with minimal improvement in pain. No dysuria abdominal pain nausea vomiting generalized weakness, weakness or sensory deficits of lower extremity or trouble urinating or pooping. Related Data Home Medications Medication Instructions Recorded Confirmed duloxetine 30 mg capsule,delayed 30 mg PO DAILY . 07/10/23 07/10/23 release ezetimibe 10 mg tablet 10 mg PO DAILY . 07/10/23 07/10/23 hydrochlorothiazide 25 mg tablet 25 mg PO DAILY . 07/10/23 07/10/23 potassium chloride 10 mEq 10 meq PO DAILY . 07/10/23 07/10/23 capsule,extended release valsartan 320 mg tablet 320 mg PO DAILY . 07/10/23 07/10/23 Previous Rx's Medication Instructions Recorded ketorolac 10 mg tablet 10 mg PO Q8H PRN pain 5 days #15 07/10/23 tabs lidocaine 5 % topical patch 1 patch topical DAILY #15 ea 07/10/23 amoxicillin 875 mg-potassium 1 tab PO Q12H 10 days #20 tabs 12/03/23 clavulanate 125 mg tablet benzonatate 100 mg capsule 100 mg PO TID PRN cough #30 caps 12/03/23 guaifenesin 600 mg tablet, 1,200 mg (2 x 600 mg) PO BID PRN 12/03/23 extended release 12 hr (Mucinex) cough #20 tabs levofloxacin 750 mg tablet 750 mg PO DAILY 7 days #7 tabs 12/19/23 lidocaine 5 % topical patch 1 patch topical Q24H #30 ea 04/19/24 acetaminophen 500 mg capsule 1,000 mg (2 x 500 mg) PO Q6H PRN 04/21/24 pain #30 caps methocarbamol 1,000 mg tablet 1,000 mg PO Q8H PRN muscle pain 04/21/24 #30 tabs Allergies Allergy/AdvReac Type Severity Reaction Status Date / Time No Known Allergies Allergy Verified 07/10/23 18:33 [facility] Disclaimer: The information contained in this section may have been updated after the patient was seen, as this information can be updated by other users. Medical History (Updated 04/21/24 @ 09:29 by Marylin Wilkinson MD) Injury of foot, left Hyperlipidemia Hypertension Surgical History History of tonsillectomy History of hysterectomy Social History Smoking Status: Former smoker tobacco type: cigarettes packs per day: 1 second hand exposure: Yes alcohol intake: never substance use type: denies use current occupational status: employed Travel in the last 8 weeks: None household members: spouse and children housing: house current occupation: [employer] current occupational exposures/hazards: No caffeine: Yes ROS Obtained: Yes All systems reviewed & no additional complaints except as documented Physical Exam General General appearance: alert Eye Eye exam: Present PERRL ENT ENT exam: Present mucous membranes moist Neck Neck exam: Present trachea midline and tenderness Chest Chest inspection: Present symmetric chest wall rise Respiratory Respiratory exam: Absent respiratory distress or accessory muscle use Cardiovascular Cardiovascular exam: Present regular rate and normal rhythm Abdominal Exam Abdominal exam: Present soft; Absent distention or tenderness Extremities Exam Extremities exam: Present full ROM; Absent tenderness Back Exam Back exam: Present tenderness (Tenderness right paraspinal thoracic muscles with associated muscle spasm, no midline tenderness) Neurological Exam Neurological exam: Present oriented X3, normal gait and motor sensory deficit Medical Decision Making Bryce Inquiry Pt receiving controlled substance: No Vital Signs: 04/21/24 07:42 04/21/24 07:45 04/21/24 08:01 Temperature 97.6 F Temperature Source Oral Pulse Rate 69 67 Pulse Rate [Right Radial] 74 Respiratory Rate 20 Blood Pressure 173/97 H 152/78 H Blood Pressure [Right Arm] 173/97 H Blood Pressure Mean 109 99 Blood Pressure Mean [Right Arm] 122 02 Sat by Pulse Oximetry 96 94 L 96 Oxygen Delivery Method Room Air 04/21/24 08:30 Temperature Temperature Source Pulse Rate 62 Pulse Rate [Right Radial] Respiratory Rate Blood Pressure 138/78 Blood Pressure [Right Arm] Blood Pressure Mean 98 Blood Pressure Mean [Right Arm] 02 Sat by Pulse Oximetry 95 Oxygen Delivery Method Orders (Tests/Meds): ED MEDICATIONS Discontinued Medications Generic Name Dose Route Start Last Admin Trade Name Arleen PRN Reason Stop Dose Admin Dexamethasone 10 mg 04/21/24 07:52 04/21/24 08:05 Dexamethasone 4mg Tablet PO 04/21/24 07:53 10 mg ONCE ONE Administration Diazepam 5 mg 04/21/24 07:52 04/21/24 08:05 Diazepam 5mg Tablet PO 04/21/24 07:53 5 mg ONCE ONE Administration Lidocaine HCl 10 ml 04/21/24 07:52 04/21/24 08:04 Lidocaine 1% 10ml Mdv IM 04/21/24 07:53 10 ml ONCE ONE Administration Medical Decision Narrative: Patient is a 58-year-old with past medical history significant for muscle spasms who presents to the emergency department with back pain. Differential diagnosis includes muscle spasm or strain, pyelonephritis, pneumonia, acute fracture. Due to reassuring history and physical exam no laboratory or imaging workup needed at this time as most suspicious for muscle spasm. Upon presentation hemodynamically stable saturating appropriately on room air no acute distress. Trigger point injections performed per procedure note. Patient had improvement of symptoms after trigger point injections p.o. Valium and Decadron. Deemed appropriate for discharge with increase of Robaxin prescription and addition of Tylenol prescription. Procedures Miscellaneous Procedure Procedure Performed: Trigger point injection. Indication paraspinal muscle spasm Patient received 1% lidocaine without epinephrine 10 mL. Interval injection with negative aspiration for blood to thoracic right paraspinal muscles. Critical Care Critical Care Time Critical Care Time: No
[2024-04-21 08:01] VITALS: BP 152/78; PULSE 67; O2SAT 96
[2024-04-21] MEDS: LIDOCAINE 1% 10ML MDV 10 ML IM (08:04)
[2024-04-21] MEDS: DEXAMETHASONE 4MG TABLET 10 MG PO (08:05)
[2024-04-21] MEDS: diazePAM 5MG TABLET 5 MG PO (08:05)
[2024-04-21 08:30] VITALS: BP 138/78; PULSE 62; O2SAT 95
[2024-04-21 09:00] VITALS: BP 141/73; PULSE 65; O2SAT 93
--- NOTE | 2024-04-21 09:01 | PC.NURSE ---
I rounded on the pt, she reports her pain has decreased from a 9 to 8/10. I took her a warm blanket. no needs voiced. vss. call bassett in reach.
[2024-04-21 09:30] VITALS: BP 131/59; PULSE 64; RESP 18; TEMP 36.4; O2SAT 95
== END 2024-04-21 09:31 | disposition home or self-care (01) ==
PROVIDERS: Emergency Provider Student in an Organized Health Care Education/Training Program
DX: M54.6 Pain in thoracic spine (principal); M62.830 Muscle spasm of back
CPT/HCPCS: 20552; 99283

== ENCOUNTER 2024-09-22 10:54 | Outpatient (CLI) | payer BC, OTHER, SELFPAY ==
--- NOTE | 2024-09-22 10:59 | CT_ITS ---
FINAL REPORT CLINICAL HISTORY: SCREENING former smoker quit 8 years ago, 1ppd x35 years COMPARISON: 06/14/2022 FINDINGS: CTDI vol (mGy): 2.90 DLP: 84.[address] images of the chest were obtained using the low-dose protocol for screening. There is no evidence of mediastinal or hilar mass or adenopathy. No axillary mass or adenopathy is identified. On the lung window images, no pulmonary mass or suspicious nodule is identified. Scarring is noted at the lung bases. IMPRESSION: Lung RADS category 1 . Recommend 12 month followup low-dose CT for further evaluation. Reviewed, Interpreted and Dictated by Dc Marquis III, MD Transcribed by Gloria Velazquez Authenticated and [facility]
== END 2024-09-22 23:59 | disposition home or self-care (01) ==
LOC: RAD 10:56
PROVIDERS: PCP Nurse Practitioner; Visit Provider Nurse Practitioner
DX: Z12.2 Encounter for screening for malignant neoplasm of respiratory organs (principal); Z87.891 Personal history of nicotine dependence
CPT/HCPCS: 71271

== ENCOUNTER 2024-09-27 19:36 | Emergency (ER) | payer BC, OTHER, SELFPAY ==
[2024-09-27 19:37] VITALS: BP 145/71; PULSE 84; RESP 18; TEMP 36.8; O2SAT 95; BMI 28.3
--- NOTE | 2024-09-27 19:57 | ED_ITS ---
<Statement entered by Dale Green MD - 09/27/24 21:53> I was consulted by the SOCORRO, and we discussed the complexity of the problems being addressed. I approved the treatment and management plan for this patient's care in the emergency department, thus performing a substantive portion of the medical decision making. Dale Green MD Discharge Plan Disposition Patient Disposition: Home, Self-Care Condition: Good Prescriptions Prescriptions: New lidocaine 5 % adhesive patch,medicated 1 patch topical DAILY Qty: 30 0RF Rx Instructions: leave on most painful area for up to 12 hrs methocarbamol 750 mg tablet 750 mg PO Q6H PRN (Reason: muscle spasm) Qty: 20 0RF ketorolac 10 mg tablet 10 mg PO Q8H PRN (Reason: pain) 2 Days Qty: 10 0RF No Action amoxicillin-pot clavulanate 875-125 mg Tablet 1 tab PO Q12H 10 Days Qty: 20 0RF benzonatate 100 mg capsule 100 mg PO TID PRN (Reason: cough) Qty: 30 0RF guaifenesin [Mucinex] 600 mg tablet extended release 12hr 1,200 mg PO BID PRN (Reason: cough) Qty: 20 0RF levofloxacin 750 mg tablet 750 mg PO DAILY 7 Days Qty: 7 0RF lidocaine 5 % adhesive patch,medicated 1 patch topical Q24H Qty: 30 0RF Rx Instructions: leave on most painful area for up to 12 hrs potassium chloride 10 mEq capsule, extended release 10 meq PO DAILY valsartan 320 mg tablet 320 mg PO DAILY hydrochlorothiazide 25 mg tablet 25 mg PO DAILY ezetimibe 10 mg tablet 10 mg PO DAILY duloxetine 30 mg capsule,delayed release(DR/EC) 30 mg PO DAILY lidocaine 5 % adhesive patch,medicated 1 patch topical DAILY Qty: 15 0RF Rx Instructions: leave on most painful area for up to 12 hrs ketorolac 10 mg tablet 10 mg PO Q8H PRN (Reason: pain) 5 Days Qty: 15 0RF methocarbamol 1,000 mg tablet 1,000 mg PO Q8H PRN (Reason: muscle pain) Qty: 30 0RF acetaminophen 500 mg capsule 1,000 mg PO Q6H PRN (Reason: pain) Qty: 30 0RF Referrals Follow up/Referrals: Hetal Olea APRN [Primary Care Provider] - See instructions Clinical Impressions Clinical Impression: Muscle spasm Stand Alone Forms Stand Alone Forms: Work/School Release Instructions Patient Instructions: DI for Low Back Pain Print Language Print Language: Serbian Discharge ED Provider: Dale Green General Adult HPI General Chief complaint: Back Pain/Injury Stated complaint: muscle spasms in back Time Seen by Provider: 09/27/24 19:57 Mode of Arrival: Ambulatory Limitations: No Limitations Description of Symptoms (Recalled from ER Triage Doc. by RN): Pt to ED with c/o muscle spasms in her mid upper back that started last night. Pt currently has a tens unit in place to affected area. Pt took 800mg ibuprofen at 1500 today with no effect. Pt reports she has had this problem before. History of Present Illness HPI narrative: Patient presents for evaluation of muscle spasms in the right upper back. Patient has a greater than 20-year history of intermittent recurrent muscle spasms. She has been evaluated multiple times and actually has a TENS unit. Patient normally keeps her spasms and check with regular physical exercise primarily water aerobics but reports that she has not been in over a month. Patient states that she has been doing much more physical activity over the last couple days and woke up today with muscle spasms in her usual location which is her right upper mid back. Patient denies any chest pain shortness of breath increased work of breathing dyspnea fever chills hemoptysis hematochezia melena nausea vomiting diarrhea numbness or tingling in any of her extremities. Related Data Home Medications ?Medication ?Instructions ?Recorded ?Confirmed duloxetine 30 mg capsule,delayed 30 mg PO DAILY . 07/10/23 07/10/23 release ezetimibe 10 mg tablet 10 mg PO DAILY . 07/10/23 07/10/23 hydrochlorothiazide 25 mg tablet 25 mg PO DAILY . 07/10/23 07/10/23 potassium chloride 10 mEq 10 meq PO DAILY . 07/10/23 07/10/23 capsule,extended release valsartan 320 mg tablet 320 mg PO DAILY . 07/10/23 07/10/23 Previous Rx's ?Medication ?Instructions ?Recorded ketorolac 10 mg tablet 10 mg PO Q8H PRN pain 5 days #15 07/10/23 tabs lidocaine 5 % topical patch 1 patch topical DAILY #15 ea 07/10/23 amoxicillin 875 mg-potassium 1 tab PO Q12H 10 days #20 tabs 12/03/23 clavulanate 125 mg tablet benzonatate 100 mg capsule 100 mg PO TID PRN cough #30 caps 12/03/23 guaifenesin 600 mg tablet, 1,200 mg (2 x 600 mg) PO BID PRN 12/03/23 extended release 12 hr (Mucinex) cough #20 tabs levofloxacin 750 mg tablet 750 mg PO DAILY 7 days #7 tabs 12/19/23 lidocaine 5 % topical patch 1 patch topical Q24H #30 ea 04/19/24 acetaminophen 500 mg capsule 1,000 mg (2 x 500 mg) PO Q6H PRN 04/21/24 pain #30 caps methocarbamol 1,000 mg tablet 1,000 mg PO Q8H PRN muscle pain 04/21/24 #30 tabs ketorolac 10 mg tablet 10 mg PO Q8H PRN pain 2 days #10 09/27/24 tabs lidocaine 5 % topical patch 1 patch topical DAILY #30 ea 09/27/24 methocarbamol 750 mg tablet 750 mg PO Q6H PRN muscle spasm #20 09/27/24 tabs Allergies Allergy/AdvReac Type Severity Reaction Status Date / Time No Known Allergies Allergy Verified 07/10/23 18:33 [facility] Disclaimer: The information contained in this section may have been updated after the patient was seen, as this information can be updated by other users. Medical History (Updated 09/27/24 @ 20:45 by SHANNON Myles) Injury of foot, left Hyperlipidemia Hypertension Surgical History History of tonsillectomy History of hysterectomy Social History Smoking Status: Never smoker second hand exposure: Yes alcohol intake: never substance use type: denies use current occupational status: employed Travel in the last 8 weeks: None household members: spouse and children housing: house current occupation: [employer] current occupational exposures/hazards: No caffeine: Yes Have you lived/traveled outside US in past 30 days?: No Contact w/someone who lives/traveled outside US past 30 days?: No Exposure to someone with infectious disease in past 14 days?: No Do you have a fever (greater than 100.4 F or 38 C)?: No Have you tested positive for COVID-19: No Exposed to someone with COVID-19 in past 14 days?: No Do you have a sore throat?: No Do you have a cough?: No Do you have any weakness?: No Do you have any diarrhea?: No Are you experiencing any unusual bleeding?: No Do you have any muscle aches/pain?: No Do you have any abdominal pain?: No Are you experiencing loss of taste or smell?: No Other Medical History Have you received the Flu Vaccine for this season: No Have you received the Pneumonia Vaccine: No ROS Obtained: Yes Systems reviewed as appropriate & no additional complaints except as documented Physical Exam General General appearance: alert and in no apparent distress Respiratory Respiratory exam: Present normal lung sounds bilaterally Cardiovascular Cardiovascular exam: Present regular rate Neurological Exam Neurological exam: Present alert and oriented X3 Medical Decision Making Medical Records Medical records reviewed: Yes I reviewed the patient's medical records. Screening: Per USPSTF and CDC recommendations, given the prevalence of disease in our region, it is our hospital?s policy to screen for HIV and viral Hepatitis for all patients aged 18 and over and those with ongoing risk factors. Bryce Inquiry Pt receiving controlled substance: No Vital Signs: 09/27/24 19:37 Temperature 98.2 F Temperature Source Oral Pulse Rate [Left Radial] 84 Respiratory Rate 18 Blood Pressure [Right Arm] 145/71 H Blood Pressure Mean [Right Arm] 95 Blood Pressure Source [Right Arm] Automatic Cuff 02 Sat by Pulse Oximetry 95 Oxygen Delivery Method Room Air Lab Data Lab results reviewed: Yes I reviewed the patient's lab results. Orders (Tests/Meds): ED MEDICATIONS Discontinued Medications Generic Name Dose Route Start Last Admin Trade Name Arleen PRN Reason Stop Dose Admin Ketorolac Tromethamine 30 mg 09/27/24 20:20 09/27/24 20:44 Ketorolac 30mg/Ml Vial IM 09/27/24 20:21 30 mg ONCE ONE Administration Methocarbamol 500 mg 09/27/24 20:20 09/27/24 20:45 Methocarbamol 500mg Tablet PO 09/27/24 20:21 500 mg ONCE ONE Administration Prednisone 60 mg 09/27/24 20:29 09/27/24 20:44 Prednisone 20mg Tab PO 09/27/24 20:30 60 mg ONCE ONE Administration Medical Decision Narrative: In summary patient is a 8-year-old female who presents to the emergency department for evaluation of muscle spasms. Patient is hemodynamically stable upon arrival, afebrile. Physical exam is remarkable actually for palpable knots in her latissimus dorsi muscle in her right mid back musculature without contusions abrasions bony deformity. Breath sounds are clear and equal bilaterally to the bases without adventitious sounds. Patient has good inspiration and excursion.. Differential diagnosis includes muscle spasm versus pneumonia versus disc disease. However there are no red flags suggestive this is anything other than her normal muscle spasms as her TENS unit is working but is unable to completely resolve her discomfort. Initial workup was considered including labs and imaging but via an interactive discussion with the patient and patient directed decision making is deferred and lieu of normal treatment which is Robaxin Lidoderm and Toradol.. Initial interventions include Lidoderm IM Toradol and Robaxin. Upon reassessment patient reported only minimal improvement after initial intervention. Given this patient I had interactive discussion with the patient regarding management options. And via patient directed discharge patient is going to elect to go home and attempt to get on her heating pad which typically works and give the medications today time to take effect. Patient will return for any worsening signs or symptoms or if her symptoms persist. I did discuss with her that we may end up giving a more po tent muscle relaxer should she recur to help break her spasms. Patient is agreeable and understands with the plan. Critical Care Critical Care Time Critical Care Time: No
[2024-09-27] MEDS: predniSONE 20MG TAB 60 MG PO (20:44)
[2024-09-27] MEDS: KETOROLAC 30MG/ML VIAL 30 MG IM (20:44)
[2024-09-27] MEDS: METHOCARBAMOL 500MG TABLET 500 MG PO (20:45)
[2024-09-27 21:53] VITALS: BP 135/74; PULSE 80; RESP 18; TEMP 36.8; O2SAT 98
== END 2024-09-27 21:54 | disposition home or self-care (01) ==
PROVIDERS: Emergency Provider Emergency Medicine; PCP Nurse Practitioner
DX: M62.838 Other muscle spasm (principal); M54.9 Dorsalgia, unspecified
CPT/HCPCS: 96372; 99283; J1885

== ENCOUNTER 2024-09-28 17:42 | Emergency (ER) | payer BC, OTHER, SELFPAY ==
[2024-09-28] VITALS (7 sets, daily range): BP systolic 151–182; BP diastolic 79–86; PULSE 68–87; RESP 18; TEMP 36.5–36.6; O2SAT 93–99; BMI 28.3
--- NOTE | 2024-09-28 17:54 | HMH.EDGENADL ---
Discharge Plan Disposition Patient Disposition: Home, Self-Care Condition: Good Prescriptions Prescriptions: No Action amoxicillin-pot clavulanate 875-125 mg Tablet 1 tab PO Q12H 10 Days Qty: 20 0RF benzonatate 100 mg capsule 100 mg PO TID PRN (Reason: cough) Qty: 30 0RF guaifenesin [Mucinex] 600 mg tablet extended release 12hr 1,200 mg PO BID PRN (Reason: cough) Qty: 20 0RF levofloxacin 750 mg tablet 750 mg PO DAILY 7 Days Qty: 7 0RF lidocaine 5 % adhesive patch,medicated 1 patch topical Q24H Qty: 30 0RF Rx Instructions: leave on most painful area for up to 12 hrs potassium chloride 10 mEq capsule, extended release 10 meq PO DAILY valsartan 320 mg tablet 320 mg PO DAILY hydrochlorothiazide 25 mg tablet 25 mg PO DAILY ezetimibe 10 mg tablet 10 mg PO DAILY duloxetine 30 mg capsule,delayed release(DR/EC) 30 mg PO DAILY lidocaine 5 % adhesive patch,medicated 1 patch topical DAILY Qty: 15 0RF Rx Instructions: leave on most painful area for up to 12 hrs ketorolac 10 mg tablet 10 mg PO Q8H PRN (Reason: pain) 5 Days Qty: 15 0RF methocarbamol 1,000 mg tablet 1,000 mg PO Q8H PRN (Reason: muscle pain) Qty: 30 0RF acetaminophen 500 mg capsule 1,000 mg PO Q6H PRN (Reason: pain) Qty: 30 0RF lidocaine 5 % adhesive patch,medicated 1 patch topical DAILY Qty: 30 0RF Rx Instructions: leave on most painful area for up to 12 hrs methocarbamol 750 mg tablet 750 mg PO Q6H PRN (Reason: muscle spasm) Qty: 20 0RF ketorolac 10 mg tablet 10 mg PO Q8H PRN (Reason: pain) 2 Days Qty: 10 0RF Referrals Follow up/Referrals: Titus Del Valle MD [Staff Physician] - See instructions Hetal Olea APRN [Primary Care Provider] - See instructions Activity Restrictions/Add. Instructions Additional Instructions/Restrictions: I have referred you to Dr. Del Valle for ongoing management. You may need trigger injections etc. Follow-up with your PCP within 48 hours for recheck. For any worsening signs or symptoms follow-up with PCP or return to the ER as needed Clinical Impressions Clinical Impression: Muscle spasm of back Print Language Print Language: Belizean Discharge ED Provider: Ayo Wilkes General Adult HPI <SHANNON Myles - Last Filed: 09/28/24 19:42> General Chief complaint: PAIN Stated complaint: back pain Time Seen by Provider: 09/28/24 17:45 History of Present Illness HPI narrative: Patient Vesta presents for right upper back muscle spasms. Patient has attempted to wait 24 hours to allow medications kick in however no conservative measures have worked including her TENS unit. She presents for reassessment as we discussed yesterday. No new complaints no numbness no tingling it still located in the musculature of her right mid back Related Data Home Medications ?Medication ?Instructions ?Recorded ?Confirmed duloxetine 30 mg capsule,delayed 30 mg PO DAILY . 07/10/23 07/10/23 release ezetimibe 10 mg tablet 10 mg PO DAILY . 07/10/23 07/10/23 hydrochlorothiazide 25 mg tablet 25 mg PO DAILY . 07/10/23 07/10/23 potassium chloride 10 mEq 10 meq PO DAILY . 07/10/23 07/10/23 capsule,extended release valsartan 320 mg tablet 320 mg PO DAILY . 07/10/23 07/10/23 Previous Rx's ?Medication ?Instructions ?Recorded ketorolac 10 mg tablet 10 mg PO Q8H PRN pain 5 days #15 07/10/23 tabs lidocaine 5 % topical patch 1 patch topical DAILY #15 ea 07/10/23 amoxicillin 875 mg-potassium 1 tab PO Q12H 10 days #20 tabs 12/03/23 clavulanate 125 mg tablet benzonatate 100 mg capsule 100 mg PO TID PRN cough #30 caps 12/03/23 guaifenesin 600 mg tablet, 1,200 mg (2 x 600 mg) PO BID PRN 12/03/23 extended release 12 hr (Mucinex) cough #20 tabs levofloxacin 750 mg tablet 750 mg PO DAILY 7 days #7 tabs 12/19/23 lidocaine 5 % topical patch 1 patch topical Q24H #30 ea 04/19/24 acetaminophen 500 mg capsule 1,000 mg (2 x 500 mg) PO Q6H PRN 04/21/24 pain #30 caps methocarbamol 1,000 mg tablet 1,000 mg PO Q8H PRN muscle pain 04/21/24 #30 tabs ketorolac 10 mg tablet 10 mg PO Q8H PRN pain 2 days #10 09/27/24 tabs lidocaine 5 % topical patch 1 patch topical DAILY #30 ea 09/27/24 methocarbamol 750 mg tablet 750 mg PO Q6H PRN muscle spasm #20 09/27/24 tabs Allergies Allergy/AdvReac Type Severity Reaction Status Date / Time No Known Allergies Allergy Verified 07/10/23 18:33 [facility] <SHANNON Myles - Last Filed: 09/28/24 19:42> [facility] Disclaimer: The information contained in this section may have been updated after the patient was seen, as this information can be updated by other users. Medical History (Updated 09/28/24 @ 19:19 by SHANNON Myles) Injury of foot, left Hyperlipidemia Hypertension Surgical History History of tonsillectomy History of hysterectomy Social History Smoking Status: Never smoker second hand exposure: Yes alcohol intake: never substance use type: denies use current occupational status: employed Travel in the last 8 weeks: None household members: spouse and children housing: house current occupation: [employer] current occupational exposures/hazards: No caffeine: Yes Have you lived/traveled outside US in past 30 days?: No Contact w/someone who lives/traveled outside US past 30 days?: No Exposure to someone with infectious disease in past 14 days?: No Do you have a fever (greater than 100.4 F or 38 C)?: No Have you tested positive for COVID-19: No Exposed to someone with COVID-19 in past 14 days?: No Do you have a sore throat?: No Do you have a cough?: No Do you have any weakness?: No Do you have any diarrhea?: No Are you experiencing any unusual bleeding?: No Do you have any muscle aches/pain?: Yes Do you have any abdominal pain?: No Are you experiencing loss of taste or smell?: No Other Medical History Have you received the Flu Vaccine for this season: No Have you received the Pneumonia Vaccine: No <SHANNON Myles - Last Filed: 09/28/24 19:42> ROS Obtained: Yes Systems reviewed as appropriate & no additional complaints except as documented Physical Exam <SHANNON Myles - Last Filed: 09/28/24 19:42> General General appearance: alert and in no apparent distress Neck Neck exam: Present lymphadenopathy Respiratory Respiratory exam: Present normal lung sounds bilaterally Cardiovascular Cardiovascular exam: Present regular rate Neurological Exam Neurological exam: Present alert and oriented X3 Medical Decision Making <SHANNON Myles - Last Filed: 09/28/24 19:42> Medical Records Medical records reviewed: Yes I reviewed the patient's medical records. Screening: Per USPSTF and CDC recommendations, given the prevalence of disease in our region, it is our hospital?s policy to screen for HIV and viral Hepatitis for all patients aged 18 and over and those with ongoing risk factors. Bryce Inquiry Pt receiving controlled substance: No Vital Signs: 09/28/24 17:50 09/28/24 18:00 09/28/24 18:04 Temperature 97.7 F Temperature Source Oral Pulse Rate 86 68 Pulse Rate [Right Brachial] 78 Respiratory Rate 18 Blood Pressure 182/85 H 153/81 H Blood Pressure [Right Arm] 153/81 H Blood Pressure Mean [Right Arm] 105 Blood Pressure Source [Right Arm] Automatic Cuff Blood Pressure Position [Right Arm] Sitting 02 Sat by Pulse Oximetry 99 97 98 Oxygen Delivery Method Room Air 09/28/24 18:15 09/28/24 18:26 09/28/24 18:31 Temperature Temperature Source Pulse Rate 80 87 86 Pulse Rate [Right Brachial] Respiratory Rate Blood Pressure 172/86 H 156/79 H Blood Pressure [Right Arm] Blood Pressure Mean [Right Arm] Blood Pressure Source [Right Arm] Blood Pressure Position [Right Arm] 02 Sat by Pulse Oximetry 97 93 L 94 L Oxygen Delivery Method Room Air Room Air 09/28/24 19:43 Temperature 98 F Temperature Source Pulse Rate 81 Pulse Rate [Right Brachial] Respiratory Rate 18 Blood Pressure 151/79 H Blood Pressure [Right Arm] Blood Pressure Mean [Right Arm] Blood Pressure Source [Right Arm] Blood Pressure Position [Right Arm] 02 Sat by Pulse Oximetry Oxygen Delivery Method Orders (Tests/Meds): ED MEDICATIONS Discontinued Medications Generic Name Dose Route Start Last Admin Trade Name Freq PRN Reason Stop Dose Admin Diazepam 5 mg 12/17/24 18:15 09/28/24 18:23 Diazepam 10mg/2ml Syringe IV 09/28/24 18:16 5 mg ONCE ONE Administration Medical Decision Narrative: In summary patient is a 58-year-old female who presents to the emergency department for evaluation of right upper back muscle spasms. Patient is hemodynamically stable upon arrival, afebrile. Physical exam redemonstrates knotted latissimus dorsi muscles and paraspinous muscles in the right mid back but no evidence of bony deformity or trauma. Breath sounds clear and equal bilaterally to the bases.. Differential diagnosis includes muscle spasm or electrolyte abnormality etc. Initial workup again was considered with imaging and laboratory vesication's however via patient directed decision making patient is comfortable with attempting relief with oral anxiolytics. Initial interventions include 5 of IV Valium. Upon reassessment patient had complete resolution of her symptoms and is appropriate for discharge with referral to pain management for further ongoing management and care. <Ayo Wilkes MD - Last Filed: 09/28/24 23:18> Vital Signs: 09/28/24 17:50 09/28/24 18:00 09/28/24 18:04 Temperature 97.7 F Temperature Source Oral Pulse Rate 86 68 Pulse Rate [Right Brachial] 78 Respiratory Rate 18 Blood Pressure 182/85 H 153/81 H Blood Pressure [Right Arm] 153/81 H Blood Pressure Mean [Right Arm] 105 Blood Pressure Source [Right Arm] Automatic Cuff Blood Pressure Position [Right Arm] Sitting 02 Sat by Pulse Oximetry 99 97 98 Oxygen Delivery Method Room Air 09/28/24 18:15 09/28/24 18:26 09/28/24 18:31 Temperature Temperature Source Pulse Rate 80 87 86 Pulse Rate [Right Brachial] Respiratory Rate Blood Pressure 172/86 H 156/79 H Blood Pressure [Right Arm] Blood Pressure Mean [Right Arm] Blood Pressure Source [Right Arm] Blood Pressure Position [Right Arm] 02 Sat by Pulse Oximetry 97 93 L 94 L Oxygen Delivery Method Room Air Room Air 09/28/24 19:43 Temperature 98 F Temperature Source Pulse Rate 81 Pulse Rate [Right Brachial] Respiratory Rate 18 Blood Pressure 151/79 H Blood Pressure [Right Arm] Blood Pressure Mean [Right Arm] Blood Pressure Source [Right Arm] Blood Pressure Position [Right Arm] 02 Sat by Pulse Oximetry Oxygen Delivery Method Orders (Tests/Meds): ED MEDICATIONS Discontinued Medications Generic Name Dose Route Start Last Admin Trade Name Arleen PRN Reason Stop Dose Admin Diazepam 5 mg 09/28/24 18:15 09/28/24 18:23 Diazepam 10mg/2ml Syringe IV 09/28/24 18:16 5 mg ONCE ONE Administration Medical Decision Narrative: In summary patient is a 58-year-old female who presents to the emergency department for evaluation of right upper back muscle spasms. Patient is hemodynamically stable upon arrival, afebrile. Physical exam redemonstrates knotted latissimus dorsi muscles and paraspinous muscles in the right mid back but no evidence of bony deformity or trauma. Breath sounds clear and equal bilaterally to the bases.. Differential diagnosis includes muscle spasm or electrolyte abnormality etc. Initial workup again was considered with imaging and laboratory vesication's however via patient directed decision making patient is comfortable with attempting relief with oral anxiolytics. Initial interventions include 5 of IV Valium. Upon reassessment patient had complete resolution of her symptoms and is appropriate for discharge with referral to pain management for further ongoing management and care. I was consulted by the SOCORRO, and we discussed the complexity of the problems being addressed. I approved the treatment and management plan for this patient's care in the Emergency Department, thus performing a substantive portion of the medical decision making. Ayo Wilkes MD Critical Care <SHANNON Myles - Last Filed: 09/28/24 19:42> Critical Care Time Critical Care Time: No
[2024-09-28] MEDS: diazePAM 10MG/2ML SYRINGE 5 MG IV (18:23)
== END 2024-09-28 19:45 | disposition home or self-care (01) ==
PROVIDERS: Emergency Provider Emergency Medicine; PCP Nurse Practitioner
DX: M62.830 Muscle spasm of back (principal); M54.9 Dorsalgia, unspecified
CPT/HCPCS: 96374; 99283; J3360

== ENCOUNTER 2024-10-27 17:05 | Outpatient (CLI) | payer BC, OTHER, SELFPAY ==
--- NOTE | 2024-10-27 17:16 | XR_ITS ---
PROCEDURE INFORMATION: Exam: XR Right Elbow Exam date and time: 10/27/2024 5:17 PM Age: 58 years old Clinical indication: Pain; Elbow; Right; Additional info: Pain post fall TECHNIQUE: Imaging protocol: Radiologic exam of the right elbow. Views: 3 or more views. COMPARISON: No relevant prior studies available. FINDINGS: Bones/joints: No fracture or dislocation. Mild degenerative joint disease. Soft tissues: Normal. IMPRESSION: No acute findings.
== END 2024-10-27 23:59 | disposition home or self-care (01) ==
LOC: RAD 17:06
PROVIDERS: PCP Nurse Practitioner; Visit Provider Nurse Practitioner
DX: M25.521 Pain in right elbow (principal); Z91.81 History of falling
CPT/HCPCS: 73080